=== PATIENT | female | born 1960 ===

== ENCOUNTER 2017-01-24 09:07 | Day surgery (SDC) | payer OTHER ==
[2016-09-13 09:20] VITALS: BMI 27.3
[2017-01-24] MEDS ORDERED: Dextrose 5%/0.45% NS 500 ML IV ONE (10:40)
[2017-01-24 11:47] LABS: BASO % 0.7 % (0.0-2.0); EOS # 0.2 K/uL (0.0-0.7); EOS % 3.6 % (0.0-4.0); LYMPH # 2.1 K/uL (1.0-4.3); LYMPH % 42.4 % (20.0-40.0); MEAN CELL VOLUME 94.8 fL (81.0-99.0); MEAN CORPUSCULAR HEMOGLOBIN 30.8 pg (27.0-31.0); MEAN CORPUSCULAR HGB CONC 32.5 g/dL (33.0-37.0); MEAN PLATELET VOLUME 9.9 fL (7.2-11.7); MONO # 0.5 K/uL (0.0-0.8); MONO % 9.3 % (0.0-10.0); RED CELL DISTRIBUTION WIDTH 13.2 % (11.5-14.5)
[2017-01-24 11:50] LABS: CHLORIDE 101 mmol/L (98-107); POTASSIUM 3.6 mmol/L (3.6-5.2); SODIUM 140 mmol/L (132-148)
[2017-01-24 11:52] LABS: GFR AFRICAN-AMERICAN > 60
[2017-01-24 11:53] LABS: ALB/GLOB RATIO 1.3 (1.0-2.1); ALKALINE PHOSPHATASE 63 U/L (38-126); ALT/SGPT 31 U/L (9-52); AST/SGOT 35 U/L (14-36); BILIRUBIN,DIRECT 0.2 mg/dL (0.0-0.4); BILIRUBIN,TOTAL 0.2 mg/dL (0.2-1.3); BLOOD UREA NITROGEN 12 mg/dL (7-17); CALCIUM 8.5 mg/dl (8.6-10.4); CARBON DIOXIDE 29 mmol/L (22-30); GLUCOSE,RANDOM 58 mg/dL (65-105); TOTAL PROTEIN 6.5 g/dL (6.3-8.3)
[2017-01-24] MEDS ORDERED: Propofol 10 mg/ml Inj (20 ML) ONE ×2 (12:34→13:00)
[2017-01-24 13:27] VITALS: TEMP 97.5
[2017-01-24 14:04] VITALS: O2SAT 100
[2017-01-24 14:07] VITALS: BP 158/81; PULSE 60; RESP 12
[2017-01-26 18:20] LABS: ALT 20 U/L (6-29); BILIRUBIN, TOTAL 0.3 mg/dL (0.2-1.2); FIBROSIS STAGE F1-F2 (()); HAPTOGLOBIN 43 mg/dL (43-212); REFERENCE ID 1484443 (())
[2017-01-28 06:53] LABS: HEPATITIS C VIRAL RNA QUAL Detected (())
[2017-01-28 22:32] LABS: DACLATASVIR RESISTANCE NOT PREDICTED (()); ELBASVIR RESISTANCE NOT PREDICTED (()); HCV NS5A SUBTYPE 1a (()); LIPIDASVIR RESISTANCE NOT PREDICTED (()); OMBITASVIR RESISTANCE NOT PREDICTED (()); VELPATASVIR RESISTANCE NOT PREDICTED (())
== END 2017-01-24 13:57 | disposition home or self-care (01) ==
LOC: C.ENDO 09:07
PROVIDERS: ATTEND Internal Medicine Gastroenterology
DX: Z12.11 Encounter for screening for malignant neoplasm of colon (principal); K57.30 Diverticulosis of large intestine without perforation or abscess without bleeding; K64.8 Other hemorrhoids; B18.2 Chronic viral hepatitis C
CPT/HCPCS: 36415; 45378; 80048; 80076; 82948; 85025; 85610; 85730; 86664; 86665; 87517; 87521; 87902; J2704; J7042

== ENCOUNTER 2017-02-01 12:25 | Emergency (ER) | payer OTHER ==
[2017-02-01 12:25] VITALS: BMI 27.3
[2017-02-01 12:54] VITALS: BP 127/79; PULSE 82; RESP 18; TEMP 98.4; O2SAT 96
--- NOTE | 2017-02-01 13:30 | C.PDOC ---
Time Seen by Provider: 02/01/17 13:15 Chief Complaint (Nursing): Substance Abuse Past Medical History Vital Signs: Last Vital Signs Temp 98.4 F 02/01/17 12:51 Pulse 82 02/01/17 12:51 Resp 18 02/01/17 12:51 BP 127/79 02/01/17 12:51 Pulse Ox 96 02/01/17 12:51 - Medical History PMH: Anxiety, Arthritis, Asthma, Back Problems (herniated discs), Bipolar Disorder, Colonic Polyps (2014), Depression, Diabetes (type 2), HTN, Pulmonary Embolism, Seizures (LAST SEIZURE 1 1/2 MONTHS AGO) Denies: Fractures, Chronic Kidney Disease Surgical History: Cholecystectomy, Endoscopy (2014) Family History: States: Unknown Family Hx - Social History Hx Tobacco Use: No Hx Alcohol Use: Yes Hx Substance Use: No (COCAINE 25 YEARS AGO; ALCOHOL; OPIODS) - Immunization History Hx Tetanus Toxoid Vaccination: No Hx Influenza Vaccination: No Hx Pneumococcal Vaccination: No ED Course And Treatment O2 Sat by Pulse Oximetry: 96
--- NOTE | 2017-02-01 13:31 | C.PDOC ---
History Of Present Illness 56 y/o female presents to the ED requesting alcohol detox. Pt was sent by PMD. Pt has no physical complaints at this time. Time Seen by Provider: 02/01/17 13:15 Chief Complaint (Nursing): Substance Abuse History Per: Patient History/Exam Limitations: no limitations Suicide/Self Injury Attempted (Context): None Modifying Factor(s): Alcohol Severity: Mild Involuntary Hold By: None Recent travel outside of the [place]: No Past Medical History Reviewed: Historical Data, Nursing Documentation, Vital Signs Vital Signs: Last Vital Signs Temp 98.4 F 02/01/17 12:51 Pulse 82 02/01/17 12:51 Resp 18 02/01/17 12:51 BP 127/79 02/01/17 12:51 Pulse Ox 96 02/01/17 13:32 - Medical History PMH: Anxiety, Arthritis, Asthma, Back Problems (herniated discs), Bipolar Disorder, Colonic Polyps (2014), Depression, Diabetes (type 2), HTN, Pulmonary Embolism, Seizures (LAST SEIZURE 1 1/2 MONTHS AGO) Surgical History: Cholecystectomy, Endoscopy (2014) Family History: States: Unknown Family Hx - Social History Hx Tobacco Use: No Hx Alcohol Use: Yes Hx Substance Use: No (COCAINE 25 YEARS AGO; ALCOHOL; OPIODS) - Immunization History Hx Tetanus Toxoid Vaccination: No Hx Influenza Vaccination: No Hx Pneumococcal Vaccination: No Review Of Systems Except As Marked, All Systems Reviewed And Found Negative. Constitutional: Negative for: Fever Cardiovascular: Negative for: Chest Pain Respiratory: Negative for: Shortness of Breath Gastrointestinal: Negative for: Vomiting Neurological: Negative for: Headache Physical Exam - Physical Exam Appears: Non-toxic, No Acute Distress Skin: Warm, Dry, No Rash Head: Atraumatic, Normacephalic Neck: Normal ROM Chest: Symmetrical Cardiovascular: Rhythm Regular, No Murmur Respiratory: Normal Breath Sounds, No Rales, No Rhonchi, No Wheezing Gastrointestinal/Abdominal: Soft, No Tenderness Extremity: Bilateral: Atraumatic Neurological/Psych: Oriented x3, Normal Speech ED Course And Treatment O2 Sat by Pulse Oximetry: 96 (on room air) Pulse Ox Interpretation: Normal Progress Note: CRISIS evaluated patient. No beds available at this time, instructed to call tomorrow. Pt resting compfortably, no acute distress. Reassessment Condition: Unchanged Disposition - Disposition Referrals: Alcoholics Anonymous [Outside] [facility] [Outside] [facility] [Outside] Disposition: HOME/ ROUTINE Disposition Time: 13:00 Condition: STABLE Additional Instructions: Follow up with outpatient services Instructions: Abuse of Alcohol (ED), Alcohol Use Disorder (ED) - Clinical Impression Clinical Impression: Alcohol abuse - PA / COMPUTATIONAL SCIENTIST / Resident Statement MD/DO has reviewed & agrees with the documentation as recorded. - Scribe Statement The provider has reviewed the documentation as recorded by the Scribrachel Welch All medical record entries made by the Reneibrachel were at my direction and personally dictated by me. I have reviewed the chart and agree that the record accurately reflects my personal performance of the history, physical exam, medical decision making, and the department course for this patient. I have also personally directed, reviewed, and agree with the discharge instructions and disposition.
== END 2017-02-01 13:47 | disposition home or self-care (01) ==
LOC: C.ER 12:25
DX: F10.10 Alcohol abuse, uncomplicated (principal); Y90.9 Presence of alcohol in blood, level not specified

== ENCOUNTER 2017-02-03 10:41 | Inpatient (IN) | payer MEDICAID, OTHER ==
[2017-02-03 10:41] VITALS: BMI 27.3
[2017-02-03 11:23] LABS: BASO # 0.1 K/uL (0.0-0.2); BASO % 1.3 % (0.0-2.0); EOS # 0.2 K/uL (0.0-0.7); HEMATOCRIT 32.8 % (34.0-47.0); LYMPH # 1.8 K/uL (1.0-4.3); LYMPH % 36.4 % (20.0-40.0); MEAN CELL VOLUME 94.1 fL (81.0-99.0); MEAN CORPUSCULAR HEMOGLOBIN 31.1 pg (27.0-31.0); MEAN PLATELET VOLUME 9.8 fL (7.2-11.7); MONO # 0.6 K/uL (0.0-0.8); MONO % 11.4 % (0.0-10.0); NRBC % 0.1 % (0.0-2.0); RED CELL DISTRIBUTION WIDTH 13.2 % (11.5-14.5); WHITE BLOOD COUNT 4.9 K/uL (4.8-10.8)
[2017-02-03 11:31] LABS: CHLORIDE 102 mmol/L (98-107); POTASSIUM 4.8 mmol/L (3.6-5.2); SODIUM 138 mmol/L (132-148)
[2017-02-03 11:33] LABS: ALB/GLOB RATIO 1.2 (1.0-2.1); ALKALINE PHOSPHATASE 106 U/L (38-126); AST/SGOT 48 U/L (14-36); BILIRUBIN,TOTAL 0.1 mg/dL (0.2-1.3); BLOOD UREA NITROGEN 31 mg/dL (7-17); CARBON DIOXIDE 24 mmol/L (22-30); GFR AFRICAN-AMERICAN > 60; TOTAL PROTEIN 7.1 g/dL (6.3-8.3)
[2017-02-03 11:34] LABS: ALCOHOL SERUM < 10 mg/dl (0-10); ALT/SGPT 53 U/L (9-52); CALCIUM 8.6 mg/dl (8.6-10.4); GLUCOSE,RANDOM 217 mg/dL (65-105)
[2017-02-03 11:45] LABS: RBC URINE 1 /hpf (0-3); URINE BACTERIA MANY (<OCC); URINE BILIRUBIN NEGATIVE (NEGATIVE); URINE BLOOD NEGATIVE (NEGATIVE); URINE COLOR Amber (YELLOW); URINE GLUCOSE (UA) NORMAL (Normal); URINE HYALINE CAST 0-2 /lpf (0-2); URINE KETONE TRACE mg/dL (NEGATIVE); URINE LEUKOCYTE ESTERASE NEG Leu/uL (Negative); URINE PROTEIN 1+ mg/dL (NEGATIVE); URINE UROBILINOGEN NORMAL mg/dL (0.2-1.0); WBC URINE 1 /hpf (0-5)
--- NOTE | 2017-02-03 12:01 | C.PDOC ---
History Of Present Illness 56 yr old female presents to the ER for alcohol detox. Patient is a pre- screened. Patient reports last drink was last night around 10pm. Patient reports history of auditory hallucinations and depression. Patient denies suicidal ideation, homicidal ideation, fever, chills, chest pain, SOB, nausea, vomiting, abdominal pain, diarrhea, weakness or numbness. Time Seen by Provider: 02/03/17 10:55 Chief Complaint (Nursing): Substance Abuse History Per: Patient History/Exam Limitations: no limitations Onset/Duration Of Symptoms: Persistent Modifying Factor(s): Alcohol Past Medical History Reviewed: Historical Data, Nursing Documentation, Vital Signs Vital Signs: Last Vital Signs Temp 97.4 F L 02/03/17 10:44 Pulse 71 02/03/17 10:44 Resp 18 02/03/17 10:44 BP 158/79 H 02/03/17 10:44 Pulse Ox 100 02/03/17 12:02 - Medical History PMH: Anxiety, Arthritis, Asthma, Back Problems (herniated discs), Bipolar Disorder, Colonic Polyps (2014), Depression, Diabetes (type 2), HTN, Pulmonary Embolism, Seizures Surgical History: Cholecystectomy, Endoscopy (2014) Family History: States: No Known Family Hx - Social History Hx Tobacco Use: No Hx Alcohol Use: Yes Hx Substance Use: No (COCAINE 25 YEARS AGO; ALCOHOL; OPIODS) - Immunization History Hx Tetanus Toxoid Vaccination: No Hx Influenza Vaccination: No Hx Pneumococcal Vaccination: No Review Of Systems Except As Marked, All Systems Reviewed And Found Negative. Constitutional: Negative for: Fever, Chills Cardiovascular: Negative for: Chest Pain Respiratory: Negative for: Shortness of Breath Gastrointestinal: Negative for: Nausea, Vomiting, Abdominal Pain, Diarrhea Neurological: Negative for: Weakness, Numbness Psych: Negative for: Suicidal ideation Physical Exam - Physical Exam Appears: Well, Non-toxic, No Acute Distress Skin: Warm, Dry, No Rash Head: Atraumatic, Normacephalic Eye(s): bilateral: Normal Inspection, PERRL, EOMI Oral Mucosa: Moist Throat: Normal, No Erythema, No Exudate, No Drooling Chest: Symmetrical, No Tenderness Cardiovascular: Rhythm Regular, No Murmur Respiratory: Normal Breath Sounds, No Rales, No Rhonchi, No Wheezing Gastrointestinal/Abdominal: Normal Exam, Soft, No Tenderness, No Guarding, No Rebound Back: Normal Inspection Extremity: Normal ROM, No Swelling Neurological/Psych: Oriented x3, Normal Speech ED Course And Treatment - Laboratory Results Result Diagrams: 02/03/17 11:19 02/03/17 11:19 Interpretation Of Abnormal: Patient noted to have UTI, given macrobid. Glucose is 217. O2 Sat by Pulse Oximetry: 100 Medical Decision Making Medical Decision Making: PLAN: * Alcohol Serum * Drug Screen * CBC * Urinalysis * Crisis evaluation * Naprosyn for chronic leg pain Labs reviewed. patient noted to have a UTI, given macrobid PO. Glucose is 217, patient has a h/o DM. Otherwise patient is medically cleared for crisis evaluation. As per Julianne vegetable worker, patient will need inpatient detox for alcohol dependence. Patient agrees with current plan of care. Disposition - Disposition Disposition: HOSPITALIZED Disposition Time: 13:02 Condition: STABLE - Clinical Impression Clinical Impression: Alcohol abuse, UTI (urinary tract infection) - PA / CYBERATHLETE / Resident Statement MD/DO has reviewed & agrees with the documentation as recorded. - Scribe Statement The provider has reviewed the documentation as recorded by the Scribe Celine Donnelly All medical record entries made by the Nerissa were at my direction and personally dictated by me. I have reviewed the chart and agree that the record accurately reflects my personal performance of the history, physical exam, medical decision making, and the department course for this patient. I have also personally directed, reviewed, and agree with the discharge instructions and disposition.
[2017-02-03] MEDS ORDERED: Naproxen 550 mg Tab PO ONE ×2 (12:30→12:33)
[2017-02-03] MEDS: (Novolog) Insulin Aspart, Recombinant 100 u/ml 10 ml vial SC SCH ×2 (16:50→21:20)
[2017-02-03] MEDS: Phenytoin 100 mg/4 ml Oral Susp UD PO SCH (17:40)
[2017-02-03] MEDS: Divalproex 500 mg ER Tab PO SCH (17:40)
--- NOTE | 2017-02-04 00:02 | PCM.PSYCH ---
Initial Psychiatric Evaluation - Initial Psychiatric Evaluation Type of Admission: Voluntary Legal Status: Capacity Chief Complaint (in patient's own words): "I need help, please" History of Present Illness and Precipitating Events: The patient is seen, chart reviewed and case discussed. This is a 56-year-old female, , has 3 children, on disability living with parents. The patient is here for alcohol detox, which she somewhat minimizes and states she is drinks sometimes but "I go to the deep end." It was reported that she drinks more than that. She denies drug use though. She had been to detox and rehabilitation before. She also reports psychiatric symptoms, she hears voices which are scary to her and sometimes given commands. However, she denies getting suicide or homicide commands and currently she doesn't feel suicidal. She had been suicidal in the past and attempted a few times. She was hospitalized at [facility] but currently she states she feels better, except for the voices. She agreed to switch her medication from Zyprexa to Abilify, which is also needed because she has diabetes. The patient sees Dr. Kessler or Dr. Solomon but does not go to therapy or a program. She agreed to switch as well. Past psych history: As above. Diagnosed with bipolar disorder, but she does not report any clear-cut manic symptoms or episodes. She does have recurrence major depression, and perhaps schizoaffective disorder. Family psych history: Alcoholism Medical history: Diabetes, hypertension, seizure disorder. Last seizure was months ago. Current Medications: Active Medications Generic Name Dose Route Start Last Admin Trade Name Freq PRN Reason Stop Dose Admin Aripiprazole 5 mg 02/04/17 18:00 Abilify PO QPM PINA Chlordiazepoxide 25 mg 02/03/17 13:32 02/03/17 16:02 Librium PO 25 mg Q4H PRN Administration Alcohol Withdrawal Chlordiazepoxide 25 mg 02/03/17 18:00 02/03/17 23:36 Librium PO 02/07/17 17:59 Not Given Q6 PINA Taper Clonidine HCl 0.1 mg 02/03/17 13:32 02/03/17 17:40 Catapres PO 0.1 mg Q4H PRN Administration Symptoms of alcohol withdrawl Divalproex Sodium 500 mg 02/03/17 16:00 02/03/17 17:40 Depakote Er PO 500 mg DAILY PINA Administration Folic Acid 1 mg 02/04/17 10:00 Folic Acid PO DAILY PINA Hydroxyzine HCl 25 mg 02/03/17 13:33 02/03/17 16:02 Atarax PO 25 mg Q4H PRN Administration Anxiety Ibuprofen 600 mg 02/03/17 13:33 02/03/17 16:02 Motrin Tab PO 600 mg Q6H PRN Administration Pain, moderate (4-7) Insulin Aspart 0 unit 02/03/17 16:30 02/03/17 21:20 Novolog SC 3 unit ACHS PINA Administration Protocol Lidocaine 1 ea 02/04/17 10:00 Lidoderm TD DAILY [facility] Lisinopril 40 mg 02/04/17 10:00 Zestril PO DAILY [facility] Multivitamins 1 tab 02/04/17 10:00 Hexavitamin PO DAILY [facility] Nitrofurantoin Macrocrystals 100 mg 02/03/17 22:00 02/03/17 21:17 Macrobid PO 100 mg Q12 PINA Administration Phenytoin 100 mg 02/03/17 18:00 02/03/17 17:40 Dilantin PO 100 mg TID [facility] Administration Thiamine HCl 100 mg 02/04/17 10:00 Vitamin B1 Tab PO DAILY [facility] Trazodone HCl 50 mg 02/03/17 13:32 Desyrel PO HS PRN Insomnia Past Psychiatric History - Past Psychiatric History Previous Treatment History: Inpatient Pertinent Medical Hx (Current Medical&Sleep Prob, Allergies): Allergies Allergy/AdvReac Type Severity Reaction Status Date / Time HOT SAUCE Allergy RASH Uncoded 02/03/17 10:46 Gabapentin [Neurontin] 300 mg PO TID 01/20/15 Lidocaine 5% [Lidoderm] 1 appl TOP DAILY 09/13/16 Phenytoin, Extended [Dilantin] 100 mg PO TID 09/13/16 RX: Famotidine 20 mg PO HS 09/13/16 Benztropine [Benztropine Mesylate] 2 mg PO DAILY 01/24/17 Bisacodyl [Ducolax] 5 mg PO DAILY 01/24/17 Calcium Carbonate/Vitamin D3 [Oysco 500 + D 500 mg-200 Iu] 1 tab PO DAILY Cholecalciferol (Vitamin D3) [Vitamin D3] 1,000 unit PO DAILY 01/24/17 Insulin Aspart [Novolog FLEXPEN] 100 units SC HS PRN 01/24/17 Multivitamin [Daily Tracey] 1 tab PO DAILY 01/24/17 RX: Divalproex Sodium 250 mg PO DAILY 01/24/17 RX: Divalproex Sodium [Divalproex Sodium ER] 250 mg PO DAILY 01/24/17 RX: Folic Acid 1 mg PO DAILY 01/24/17 RX: Lisinopril [Zestril] 40 mg DAILY 01/24/17 OLANZapine [Zyprexa Zydis] 10 mg PO DAILY 02/03/17 Review of Systems - Neurological Neurological: UNREMARKABLE - Psychiatric Psychiatric: Abnormal Sleep Pattern, Anhedonia, Anxiety, Auditory Hallucinations , Difficulty Concentrating, Hallucinations, Mood Swings, Panic Attacks. absent : Homicidal Ideation, Paranoia, Suicidal Ideation Mental Status Examination - Personal Presentation Personal Presentation: Looks stated age - Affect Affect: Constricted - Motor Activity Motor Activity: Calm - Reliability in Providing Information Reliability in Providing Information: Good - Speech Speech: Organized - Mood Mood: Depressed, Anxious - Formal Thought Process Formal Thought Process: No Impairment - Cognitive Functions Orientation: Person, Place, Situation, Time Sensorium: Alert Attention/Concentration: Attentive Estimate of Intelligence: Average Judgement: Intact, as evidence by: Insight regarding need for hospitalization Memory: Recent intact, as evidence by: Ability to recall events of the day, Remote intact, as evidenced by: Abilit to recall sig. life events - Risk Risk: Seizure, Withdrawal, Diminished functioning - Strength & Assets Inventory Strength & Assets Inventory: Family support, Cooperative - Limitations Limitations: Other DSM 5 DX - DSM 5 DSM 5 Diagnosis: Alcohol withdrawal Alcohol use d/o - severe Major depression - recurrent, severe, with psychotic feat. DM HTN Seizure d/o - Recommended/Plan of Treatment Treatment Recommendations and Plan of Treatment: Alcohol: -Librium detox -As needed medications -Support and psychoeducation -Attend groups and activities -[place] and CBT for abstinence and relapse prevention Depression/psychotic symptoms: -Prozac started -Abilify started -Discontinue Zyprexa -Support and psychoeducation -CBT Seizure disorder: -Continue Dilantin -Dilantin level in a.m. -Depakote is increased from 500-1000 ER -Depakote level in 3 days -Monitor symptoms UTI: -Macrobid DM, HTN: -Med consult -FS coverage for now 33 min Projected ELOS: 4 days Prognosis: good with tx Discharge Plan and Discharge Criteria: No wdw sxs Refer to IOP and start MAT - Smoking Cessation Smoking Cessation Initiated: Yes
[2017-02-04] MEDS: (Novolog) Insulin Aspart, Recombinant 100 u/ml 10 ml vial SC SCH ×4 (07:39→21:55)
[2017-02-04 08:39] LABS: MAGNESIUM 2.3 mg/dL (1.6-2.3)
[2017-02-04 09:47] LABS: THYROID STIMULATING HORMONE 1.08 mIU/L (0.46-4.68)
[2017-02-04] MEDS: Divalproex 500 mg ER Tab PO SCH ×2 (09:55→18:16)
[2017-02-04] MEDS: Phenytoin 100 mg/4 ml Oral Susp UD PO SCH ×3 (09:56→18:17)
[2017-02-04] MEDS: Lidocaine 5% Patch TD SCH (09:56)
[2017-02-04] MEDS: Multiple Vitamins Tab PO SCH (09:56)
[2017-02-04] MEDS ORDERED: Divalproex 500 mg ER Tab PO SCH (10:26)
--- NOTE | 2017-02-04 15:03 | CP.PCM.CON ---
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 Medicine team was consulted for diabetes management as patient has POC > 400 this AM. Patient admits she is compliant with medications. [facility] in [place] is where she filled her medications last. Patient reports she is sleepy and hearing things. Admits to exessive thirst and urinary frequency. She is not sure if she's having dysuria, but admits her habit of douching might be related to her discomfort. Admits to numbness and tingling of bilateral LE. Admit to complaince at home with medications. Denies chest pain, abdominal pain, nausea, vomiting, fevers, chills , headache. 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 Surgeries: None Medications: Olanzapine HS, Benztropine 1 mg daily, Phenytoin, Famotadine, Gabapentin 300 mg TID, Glargine 40 units SC daily, Lisinopril 40 mg PO daily, Folic acid, Vit D 1000 daily, Anusol 500 mg BID, Linzess 290 mg PO daily, Lidocaine patch, ASA 81 mg PO daily (confirmed with patient's pharmacy). Family Hx: mother and father with DM. Allergies: hot sauce PMD: Dr. Orourke Review of Systems - Constitutional Constitutional: absent: Chills, Fever - EENT Eyes: absent: Blurred Vision Ears: absent: Dizziness - Cardiovascular Cardiovascular: absent: Chest Pain, Dyspnea - Respiratory Respiratory: absent: Cough, Dyspnea - Gastrointestinal Gastrointestinal: absent: Abdominal Pain, Constipation, Diarrhea, Nausea, Vomiting - Genitourinary Genitourinary: Dysuria, Urinary Frequency. absent: Change in Urinary Stream, Difficulty Urinating - Musculoskeletal Musculoskeletal: Back Pain. absent: Numbness, Tingling - Integumentary Integumentary: absent: Rash, Swelling - Neurological Neurological: Numbness, Tingling. absent: Dizziness, Tremor, Weakness - Psychiatric Psychiatric: Hallucinations, Paranoia - Endocrine Endocrine: absent: Fatigue, Palpitations Past Patient History - Past Medical History & Family History Past Medical History?: Yes - Past Social History Smoking Status: Light Smoker < 10 Cigarettes Daily - CARDIAC Hx Hypertension: Yes - PULMONARY Hx Asthma: Yes Hx Pulmonary Embolism: Yes - NEUROLOGICAL Hx Seizures: Yes - HEENT Hx HEENT Problems: No - RENAL Hx Chronic Kidney Disease: No - ENDOCRINE/METABOLIC Hx Endocrine Disorders: Yes Hx Diabetes Mellitus Type 2: Yes - HEMATOLOGICAL/ONCOLOGICAL Hx Cancer: No Hx Human Immunodeficiency Virus (HIV): No - INTEGUMENTARY Hx Dermatological Problems: No - MUSCULOSKELETAL/RHEUMATOLOGICAL Hx Arthritis: Yes Hx Falls: No (hx seizure) - GASTROINTESTINAL Hx Gastrointestinal Disorders: Yes Hx Gastroesophageal Reflux: Yes Other/Comment: GASTRIC BYPASS, PEPTIC ULCER DISEASE - GENITOURINARY/GYNECOLOGICAL Hx Sexually Transmitted Disorders: No - PSYCHIATRIC Hx Anxiety: Yes Hx Bipolar Disorder: Yes Hx Depression: Yes Hx Substance Use: Yes (use cocaine before) - SURGICAL HISTORY Hx Cholecystectomy: Yes - ANESTHESIA Hx Anesthesia: Yes Hx Anesthesia Reactions: No Hx Malignant Hyperthermia: No Meds Allergies/Adverse Reactions: Allergies Allergy/AdvReac Type Severity Reaction Status Date / Time HOT SAUCE Allergy RASH Uncoded 02/03/17 10:46 - Medications Medications: Current Medications Aripiprazole (Abilify) 5 mg PO QPM [facility] Chlordiazepoxide (Librium) 25 mg PO Q4H PRN PRN Reason: Alcohol Withdrawal Last Admin: 02/03/17 16:02 Dose: 25 mg Chlordiazepoxide (Librium) 25 mg PO Q6 [facility] PRN Reason: Taper Stop: 02/07/17 17:59 Last Admin: 02/04/17 11:51 Dose: 25 mg Clonidine HCl (Catapres) 0.1 mg PO Q4H PRN PRN Reason: Symptoms of alcohol withdrawl Last Admin: 02/03/17 17:40 Dose: 0.1 mg Divalproex Sodium (Depakote Er) 1,000 mg PO QPM [facility] Fluoxetine HCl (Prozac) 10 mg PO DAILY [facility] Last Admin: 02/04/17 13:00 Dose: 10 mg Folic Acid (Folic Acid) 1 mg PO DAILY [facility] Last Admin: 02/04/17 09:56 Dose: 1 mg Haloperidol (Haldol) 5 mg PO Q4H PRN PRN Reason: Hallucinations, agitation Hydroxyzine HCl (Atarax) 25 mg PO Q4H PRN PRN Reason: Anxiety Last Admin: 02/03/17 16:02 Dose: 25 mg Ibuprofen (Motrin Tab) 600 mg PO Q6H PRN PRN Reason: Pain, moderate (4-7) Last Admin: 02/03/17 16:02 Dose: 600 mg Insulin Aspart (Novolog) 0 unit SC ACHS [facility] PRN Reason: Protocol Last Admin: 02/04/17 11:51 Dose: 10 unit Lidocaine (Lidoderm) 1 ea TD DAILY [facility] Last Admin: 02/04/17 09:56 Dose: 1 ea Lisinopril (Zestril) 40 mg PO DAILY [facility] Last Admin: 02/04/17 09:56 Dose: 40 mg Multivitamins (Hexavitamin) 1 tab PO DAILY [facility] Last Admin: 02/04/17 09:56 Dose: 1 tab Nitrofurantoin Macrocrystals (Macrobid) 100 mg PO Q12 [facility] Last Admin: 02/04/17 09:55 Dose: 100 mg Phenytoin (Dilantin) 100 mg PO TID [facility] Last Admin: 02/04/17 13:00 Dose: 100 mg Thiamine HCl (Vitamin B1 Tab) 100 mg PO DAILY [facility] Last Admin: 02/04/17 09:56 Dose: 100 mg Trazodone HCl (Desyrel) 50 mg PO HS PRN PRN Reason: Insomnia Physical Exam - Constitutional Appears: No Acute Distress - Head Exam Head Exam: NORMAL INSPECTION, NORMOCEPHALIC - Eye Exam Eye Exam: EOMI, Normal appearance - ENT Exam ENT Exam: Mucous Membranes Moist - Neck Exam Neck exam: Positive for: Full Rom, Normal Inspection - Respiratory Exam Respiratory Exam: Clear to Auscultation Bilateral, NORMAL BREATHING PATTERN - Cardiovascular Exam Cardiovascular Exam: REGULAR RHYTHM, +S1, +S2 - GI/Abdominal Exam GI & Abdominal Exam: Normal Bowel Sounds, Soft. absent: Distended, Tenderness - Extremities Exam Extremities exam: Positive for: full ROM, normal inspection - Back Exam Back exam: NORMAL INSPECTION - Neurological Exam Neurological exam: Alert, Oriented x3 - Psychiatric Exam Psychiatric exam: Normal Affect, Normal Mood - Skin Skin Exam: Dry, Normal Color Results - Vital Signs Recent Vital Signs: Last Vital Signs Temp 97.4 F L 02/04/17 13:04 Pulse 74 02/04/17 13:04 Resp 18 02/04/17 13:04 BP 122/76 02/04/17 13:04 Pulse Ox 99 02/04/17 13:04 - Labs Result Diagrams: 02/03/17 11:19 02/03/17 11:19 Labs: Laboratory Results - last 24 hr 02/03/17 02/04/17 02/04/17 21:12 07:31 08:01 POC Glucose (mg/dL) 383 H 290 H Hemoglobin A1c 9.1 H Magnesium 2.3 Triglycerides 51 Cholesterol 164 LDL Cholesterol Direct 45 HDL Cholesterol 102 H TSH 3rd Generation 1.08 02/04/17 11:38 POC Glucose (mg/dL) 443 H* Hemoglobin A1c Magnesium Triglycerides Cholesterol LDL Cholesterol Direct HDL Cholesterol TSH 3rd Generation Assessment & Plan (1) Diabetes mellitus Assessment and Plan: ACCUCHECKS ACHS f/u Hgb A1C Restart home medication Lantus 40 mg HS Regular ISS Gabapentin 300 mg po TID for neuropathy Status: Acute (2) Dysuria Assessment and Plan: f/u UA f/u C&S Status: Acute (3) Alcohol abuse Assessment and Plan: Detox as per Detox team. Patient on Ativan taper. MV PO daily Thiamine 100 mg PO daily Status: Acute (4) HTN (hypertension) Assessment and Plan: Restart home medication Lisinopril 40 mg PO daily Status: Acute (5) Prophylactic measure Assessment and Plan: Pepcid 20 mg PO BID Ambulation Status: Acute <Juan Carlos Miranda - Last Filed: 02/05/17 14:26> Meds - Medications Medications: Current Medications Aripiprazole (Abilify) 5 mg PO QPM [facility] Last Admin: 02/04/17 18:15 Dose: 5 mg Chlordiazepoxide (Librium) 25 mg PO Q4H PRN PRN Reason: Alcohol Withdrawal Last Admin: 02/03/17 16:02 Dose: 25 mg Chlordiazepoxide (Librium) 25 mg PO TID [facility] PRN Reason: Taper Stop: 02/07/17 17:59 Last Admin: 02/05/17 13:31 Dose: 25 mg Clonidine HCl (Catapres) 0.1 mg PO Q4H PRN PRN Reason: Symptoms of alcohol withdrawl Last Admin: 02/03/17 17:40 Dose: 0.1 mg Divalproex Sodium (Depakote Er) 1,000 mg PO QPM [facility] Last Admin: 02/04/17 18:16 Dose: 1,000 mg Famotidine (Pepcid) 20 mg PO BID [facility] Last Admin: 02/05/17 09:41 Dose: 20 mg Fluoxetine HCl (Prozac) 10 mg PO DAILY [facility] Last Admin: 02/05/17 09:41 Dose: 10 mg Folic Acid (Folic Acid) 1 mg PO DAILY [facility] Last Admin: 02/05/17 09:41 Dose: 1 mg Gabapentin (Neurontin) 300 mg PO TID [facility] Last Admin: 02/05/17 13:31 Dose: 300 mg Haloperidol (Haldol) 5 mg PO Q4H PRN PRN Reason: Hallucinations, agitation Hydroxyzine HCl (Atarax) 25 mg PO Q4H PRN PRN Reason: Anxiety Last Admin: 02/03/17 16:02 Dose: 25 mg Ibuprofen (Motrin Tab) 600 mg PO Q6H PRN PRN Reason: Pain, moderate (4-7) Last Admin: 02/03/17 16:02 Dose: 600 mg Insulin Aspart (Novolog) 0 unit SC ACHS [facility] PRN Reason: Protocol Last Admin: 02/05/17 12:48 Dose: 8 unit Insulin Glargine (Lantus) 40 unit SC HS [facility] Last Admin: 02/04/17 21:50 Dose: 40 u Lidocaine (Lidoderm) 1 ea TD DAILY [facility] Last Admin: 02/05/17 09:40 Dose: 1 ea Lisinopril (Zestril) 40 mg PO DAILY [facility] Last Admin: 02/05/17 09:41 Dose: 40 mg Multivitamins (Hexavitamin) 1 tab PO DAILY [facility] Last Admin: 02/05/17 09:41 Dose: 1 tab Nitrofurantoin Macrocrystals (Macrobid) 100 mg PO Q12 [facility] Last Admin: 02/05/17 09:41 Dose: 100 mg Phenytoin (Dilantin) 100 mg PO TID [facility] Last Admin: 02/05/17 13:31 Dose: 100 mg Thiamine HCl (Vitamin B1 Tab) 100 mg PO DAILY [facility] Last Admin: 02/05/17 09:41 Dose: 100 mg Trazodone HCl (Desyrel) 50 mg PO HS PRN PRN Reason: Insomnia Last Admin: 02/04/17 21:59 Dose: 50 mg Results - Vital Signs Recent Vital Signs: Last Vital Signs Temp 98.7 F 02/05/17 13:46 Pulse 75 02/05/17 13:46 Resp 16 02/05/17 13:46 BP 114/75 02/05/17 13:46 Pulse Ox 99 02/05/17 13:46 - Labs Result Diagrams: 02/05/17 08:58 02/05/17 08:58 Labs: Laboratory Results - last 24 hr 02/04/17 02/04/17 02/05/17 17:28 21:21 05:56 WBC RBC Hgb Hct MCV MCH MCHC RDW Plt Count MPV Neut % (Auto) Lymph % (Auto) Kem[place] % (Auto) Eos % (Auto) Baso % (Auto) Neut # Lymph # Kemper # Eos # Baso # Sodium Potassium Chloride Carbon Dioxide Anion Gap BUN Creatinine Est GFR ( Amer) Est GFR (Non-Af Amer) POC Glucose (mg/dL) 336 H 394 H 189 H Random Glucose Calcium Magnesium Total Bilirubin AST ALT Alkaline Phosphatase Total Protein Albumin Globulin Albumin/Globulin Ratio Urine Color Urine Clarity Urine pH Ur Specific [place] Urine Protein Urine Glucose (UA) Urine Ketones Urine Blood Urine Nitrate Urine Bilirubin Urine Urobilinogen Ur Leukocyte Esterase Urine WBC (Auto) Ur Squamous Epith Cells Urine Bacteria Phenytoin 02/05/17 02/05/17 02/05/17 08:12 08:58 10:28 WBC 4.5 L RBC 3.65 L Hgb 11.3 Hct 34.7 MCV 95.1 MCH 31.0 MCHC 32.6 L RDW 13.4 Plt Count 211 MPV 10.3 Neut % (Auto) 35.2 L Lymph % (Auto) 49.1 H Kemper % (Auto) 8.6 Eos % (Auto) 6.0 H Baso % (Auto) 1.1 Neut # 1.6 L Lymph # 2.2 Kemper # 0.4 Eos # 0.3 Baso # 0.0 Sodium 140 Potassium 4.2 Chloride 106 Carbon Dioxide 26 Anion Gap 13 BUN 27 H Creatinine 0.6 L Est GFR ( Amer) > 60 Est GFR (Non-Af Amer) > 60 POC Glucose (mg/dL) 110 Random Glucose 103 Calcium 8.3 L Magnesium 2.4 H Total Bilirubin 0.2 AST 29 ALT 35 Alkaline Phosphatase 82 Total Protein 6.4 Albumin 3.4 L Globulin 3.0 Albumin/Globulin Ratio 1.1 Urine Color Yellow Urine Clarity Hazy Urine pH 5.0 Ur Specific [place] 1.016 Urine Protein Negative Urine Glucose (UA) 3+ H Urine Ketones Trace Urine Blood Negative Urine Nitrate Positive H Urine Bilirubin Negative Urine Urobilinogen Normal Ur Leukocyte Esterase Neg Urine WBC (Auto) 5 Ur Squamous Epith Cells 4 Urine Bacteria Many H Phenytoin < 3.0 L Attending/Attestation - Attestation I have personally seen and examined this patient.: Yes I have fully participated in the care of the patient.: Yes I have reviewed all pertinent clinical information: Yes Notes (Text): 02/05/17 14:25 Patient was seen and examined at bedside with the resident She will be started on Lantus and insulin sliding scale We will monitor the Accu-Cheks closely and titrate the insulin for optimal control Urinalysis noted Patient is unremarkable Agree with the above consultation note with the resident with the necessary amendments.
--- NOTE | 2017-02-04 15:19 | PCM.PYCHPN ---
Psychiatric Progress Note - Psychiatric Progress Note Patient seen today, length of contact: 22 min Patient Chief Complaint: "I need med change" Problems Identified/Issues Discussed: The pt is seen, chart reviewed, case discussed with staff. She is seen with the team The pt is compliant with medications and reports no side-effects. Symptoms are improving but needs more time to stabilize. Still having anxiety and sometimes AH. Not manic, paranoid or suicidal/ homicidal. Support given, MS used. After care discussed, support and psychoeducation given. She wants to go to an [facility] Medication Change: Yes Medical Record Reviewed: Yes Mental Status Examination - Cognitive Function Orientation: Person, Place, Situation, Time Memory: Impaired Attention: Poor Concentration: Poor Association: WNL Fund of Knowledge: Poor - Mood Mood: Depressed, Anxious - Affect Affect: Constricted - Speech Speech: Slurred (due to stroke) - Formal Thought Process Formal Thought Process: No Impairment - Suicidal Ideation Suicidal Ideation: No - Homicidal Ideation Homicidal Ideation: No Goal/Treatment Plan - Goal/Treatment Plan Need for Continued Stay: Discharge may exacerbated symptoms, Severe functional impairment Progress Toward Problem(s) and Goals/Treatment Plan: Alcohol: -Librium detox -As needed medications -Support and psychoeducation -Attend groups and activities -MS and CBT for abstinence and relapse prevention Depression/psychotic symptoms: -Prozac started -Abilify started -Discontinue Zyprexa -Support and psychoeducation -CBT Seizure disorder: -Continue Dilantin -Dilantin level in a.m. -Depakote is increased from 500-1000 ER -Depakote level in 3 days -Monitor symptoms UTI: -Macrobid DM, HTN: -Med consult -FS coverage for now Estimated Date of D/C: 02/07/17 - Smoking Cessation Smoking Cessation Initiated: Yes
[2017-02-04] MEDS: (Lantus) Insulin Glargine, Recombinant SC SCH (21:50)
[2017-02-05] MEDS: (Novolog) Insulin Aspart, Recombinant 100 u/ml 10 ml vial SC SCH ×4 (08:14→21:31)
--- NOTE | 2017-02-05 08:19 | CP.PCM.PN ---
<Hemanth Bean - Last Filed: 02/05/17 08:29> Subjective - Date & Time of Evaluation Date of Evaluation: 02/05/17 Time of Evaluation: 08:30 - Subjective Subjective: Medicine Note- Hospitalist Service Patient was seen and examined at bedside. Patient reports no acute complaints at this time. She says she has a mild discomfort/burn around her vaginal area, but thinks it may be from douching too much. She also mentions some chronic back and leg pain attributed to arthritis. No events overnight, per nursing. Objective - Vital Signs/Intake and Output Vital Signs (last 24 hours): Temp Pulse Resp BP Pulse Ox 97.9 F 79 18 115/74 97 02/05/17 04:58 02/05/17 04:58 02/05/17 04:58 02/05/17 04:58 02/05/17 04:58 - Medications Medications: Current Medications Aripiprazole (Abilify) 5 mg PO QPM [facility] Last Admin: 02/04/17 18:15 Dose: 5 mg Chlordiazepoxide (Librium) 25 mg PO Q4H PRN PRN Reason: Alcohol Withdrawal Last Admin: 02/03/17 16:02 Dose: 25 mg Chlordiazepoxide (Librium) 25 mg PO TID [facility] PRN Reason: Taper Stop: 02/07/17 17:59 Last Admin: 02/04/17 18:15 Dose: 25 mg Clonidine HCl (Catapres) 0.1 mg PO Q4H PRN PRN Reason: Symptoms of alcohol withdrawl Last Admin: 02/03/17 17:40 Dose: 0.1 mg Divalproex Sodium (Depakote Er) 1,000 mg PO QPM [facility] Last Admin: 02/04/17 18:16 Dose: 1,000 mg Famotidine (Pepcid) 20 mg PO BID [facility] Last Admin: 02/04/17 18:15 Dose: 20 mg Fluoxetine HCl (Prozac) 10 mg PO DAILY [facility] Last Admin: 02/04/17 13:00 Dose: 10 mg Folic Acid (Folic Acid) 1 mg PO DAILY [facility] Last Admin: 02/04/17 09:56 Dose: 1 mg Gabapentin (Neurontin) 300 mg PO TID [facility] Last Admin: 02/04/17 18:15 Dose: 300 mg Haloperidol (Haldol) 5 mg PO Q4H PRN PRN Reason: Hallucinations, agitation Hydroxyzine HCl (Atarax) 25 mg PO Q4H PRN PRN Reason: Anxiety Last Admin: 02/03/17 16:02 Dose: 25 mg Ibuprofen (Motrin Tab) 600 mg PO Q6H PRN PRN Reason: Pain, moderate (4-7) Last Admin: 02/03/17 16:02 Dose: 600 mg Insulin Aspart (Novolog) 0 unit SC [facility] PRN Reason: Protocol Last Admin: 02/05/17 08:14 Dose: Not Given Insulin Glargine (Lantus) 40 unit SC HS [facility] Last Admin: 02/04/17 21:50 Dose: 40 u Lidocaine (Lidoderm) 1 ea TD DAILY [facility] Last Admin: 02/04/17 09:56 Dose: 1 ea Lisinopril (Zestril) 40 mg PO DAILY [facility] Last Admin: 02/04/17 09:56 Dose: 40 mg Multivitamins (Hexavitamin) 1 tab PO DAILY [facility] Last Admin: 02/04/17 09:56 Dose: 1 tab Nitrofurantoin Macrocrystals (Macrobid) 100 mg PO Q12 [facility] Last Admin: 02/04/17 21:48 Dose: 100 mg Phenytoin (Dilantin) 100 mg PO TID [facility] Last Admin: 02/04/17 18:17 Dose: 100 mg Thiamine HCl (Vitamin B1 Tab) 100 mg PO DAILY [facility] Last Admin: 02/04/17 09:56 Dose: 100 mg Trazodone HCl (Desyrel) 50 mg PO HS PRN PRN Reason: Insomnia Last Admin: 02/04/17 21:59 Dose: 50 mg Assessment and Plan - Assessment and Plan (Free Text) Assessment: (1) Diabetes mellitus Assessment and Plan: ACCUCHECKS [facility] HgbA1C- 9.1 Continue hhome medication Lantus 40 mg HS Regular ISS Gabapentin 300 mg po TID for neuropathy Status: Acute (2) Dysuria Assessment and Plan: UA- Nitrate positive UA- pending Urine C&S- pending Currently on Bactrim 100mg Q12h Status: Acute (3) Alcohol abuse Assessment and Plan: Detox as per Detox team. Patient on Ativan taper. MV PO daily Thiamine 100 mg PO daily Status: Acute (4) HTN (hypertension) Assessment and Plan: Continue home medication Lisinopril 40 mg PO daily Status: Acute (5) Prophylactic measure Assessment and Plan: Pepcid 20 mg PO BID Ambulation Status: Acute <Juan Carlos Miranda - Last Filed: 02/05/17 15:21> Objective - Vital Signs/Intake and Output Vital Signs (last 24 hours): Temp Pulse Resp BP Pulse Ox 98.7 F 75 16 114/75 99 02/05/17 13:46 02/05/17 13:46 02/05/17 13:46 02/05/17 13:46 02/05/17 13:46 - Medications Medications: Current Medications Aripiprazole (Abilify) 5 mg PO QPM [facility] Last Admin: 02/04/17 18:15 Dose: 5 mg Chlordiazepoxide (Librium) 25 mg PO Q4H PRN PRN Reason: Alcohol Withdrawal Last Admin: 02/03/17 16:02 Dose: 25 mg Chlordiazepoxide (Librium) 25 mg PO TID [facility] PRN Reason: Taper Stop: 02/07/17 17:59 Last Admin: 02/05/17 13:31 Dose: 25 mg Clonidine HCl (Catapres) 0.1 mg PO Q4H PRN PRN Reason: Symptoms of alcohol withdrawl Last Admin: 02/03/17 17:40 Dose: 0.1 mg Divalproex Sodium (Depakote Er) 1,000 mg PO QPM [facility] Last Admin: 02/04/17 18:16 Dose: 1,000 mg Famotidine (Pepcid) 20 mg PO BID [facility] Last Admin: 02/05/17 09:41 Dose: 20 mg Fluoxetine HCl (Prozac) 10 mg PO DAILY [facility] Last Admin: 02/05/17 09:41 Dose: 10 mg Folic Acid (Folic Acid) 1 mg PO DAILY [facility] Last Admin: 02/05/17 09:41 Dose: 1 mg Gabapentin (Neurontin) 300 mg PO TID [facility] Last Admin: 02/05/17 13:31 Dose: 300 mg Haloperidol (Haldol) 5 mg PO Q4H PRN PRN Reason: Hallucinations, agitation Hydroxyzine HCl (Atarax) 25 mg PO Q4H PRN PRN Reason: Anxiety Last Admin: 02/03/17 16:02 Dose: 25 mg Ibuprofen (Motrin Tab) 600 mg PO Q6H PRN PRN Reason: Pain, moderate (4-7) Last Admin: 02/03/17 16:02 Dose: 600 mg Insulin Aspart (Novolog) 0 unit SC ACHS [facility] PRN Reason: Protocol Last Admin: 02/05/17 12:48 Dose: 8 unit Insulin Glargine (Lantus) 40 unit SC HS [facility] Last Admin: 02/04/17 21:50 Dose: 40 u Lidocaine (Lidoderm) 1 ea TD DAILY [facility] Last Admin: 02/05/17 09:40 Dose: 1 ea Lisinopril (Zestril) 40 mg PO DAILY [facility] Last Admin: 02/05/17 09:41 Dose: 40 mg Multivitamins (Hexavitamin) 1 tab PO DAILY [facility] Last Admin: 02/05/17 09:41 Dose: 1 tab Nitrofurantoin Macrocrystals (Macrobid) 100 mg PO Q12 [facility] Last Admin: 02/05/17 09:41 Dose: 100 mg Phenytoin (Dilantin) 100 mg PO TID [facility] Last Admin: 02/05/17 13:31 Dose: 100 mg Thiamine HCl (Vitamin B1 Tab) 100 mg PO DAILY [facility] Last Admin: 02/05/17 09:41 Dose: 100 mg Trazodone HCl (Desyrel) 50 mg PO HS PRN PRN Reason: Insomnia Last Admin: 02/04/17 21:59 Dose: 50 mg - Labs Labs: 02/05/17 08:58 02/05/17 08:58 Attending/Attestation - Attestation I have personally seen and examined this patient.: Yes I have fully participated in the care of the patient.: Yes I have reviewed all pertinent clinical information, including history, physical exam and plan: Yes Notes (Text): 02/05/17 15:21 Patient seen and examined at bedside Blood sugar is better controlled now Continue current regimen of insulin We will titrate as needed for optimal control Patient is on Macrobid for UTI Discussed the plan of care with the resident and agree with the above history and physical and assessment/plan this mentioned above with the necessary amendments stated here.
[2017-02-05 09:07] LABS: BASO % 1.1 % (0.0-2.0); EOS # 0.3 K/uL (0.0-0.7); HEMATOCRIT 34.7 % (34.0-47.0); LYMPH # 2.2 K/uL (1.0-4.3); LYMPH % 49.1 % (20.0-40.0); MEAN CELL VOLUME 95.1 fL (81.0-99.0); MEAN CORPUSCULAR HGB CONC 32.6 g/dL (33.0-37.0); MEAN PLATELET VOLUME 10.3 fL (7.2-11.7); MONO # 0.4 K/uL (0.0-0.8); MONO % 8.6 % (0.0-10.0); NRBC % 0.1 % (0.0-2.0); RED CELL DISTRIBUTION WIDTH 13.4 % (11.5-14.5); WHITE BLOOD COUNT 4.5 K/uL (4.8-10.8)
[2017-02-05 09:19] LABS: CHLORIDE 106 mmol/L (98-107)
[2017-02-05 09:20] LABS: SODIUM 140 mmol/L (132-148)
[2017-02-05 09:21] LABS: POTASSIUM 4.2 mmol/L (3.6-5.2)
[2017-02-05 09:23] LABS: ALB/GLOB RATIO 1.1 (1.0-2.1); ALKALINE PHOSPHATASE 82 U/L (38-126); AST/SGOT 29 U/L (14-36); BILIRUBIN,TOTAL 0.2 mg/dL (0.2-1.3); BLOOD UREA NITROGEN 27 mg/dL (7-17); CARBON DIOXIDE 26 mmol/L (22-30); GFR AFRICAN-AMERICAN > 60; GLUCOSE,RANDOM 103 mg/dL (65-105); TOTAL PROTEIN 6.4 g/dL (6.3-8.3)
[2017-02-05 09:24] LABS: ALT/SGPT 35 U/L (9-52); CALCIUM 8.3 mg/dl (8.6-10.4); MAGNESIUM 2.4 mg/dL (1.6-2.3)
[2017-02-05] MEDS: Phenytoin 100 mg/4 ml Oral Susp UD PO SCH ×3 (09:40→17:28)
[2017-02-05] MEDS: Lidocaine 5% Patch TD SCH (09:40)
[2017-02-05] MEDS: Multiple Vitamins Tab PO SCH (09:41)
[2017-02-05 10:55] LABS: URINE BACTERIA MANY (<OCC); URINE BILIRUBIN NEGATIVE (NEGATIVE); URINE BLOOD NEGATIVE (NEGATIVE); URINE COLOR Yellow (YELLOW); URINE GLUCOSE (UA) 3+ mg/dL (Normal); URINE KETONE TRACE mg/dL (NEGATIVE); URINE LEUKOCYTE ESTERASE NEG Leu/uL (Negative); URINE PROTEIN NEGATIVE (NEGATIVE); URINE UROBILINOGEN NORMAL mg/dL (0.2-1.0); WBC URINE 5 /hpf (0-5)
--- NOTE | 2017-02-05 13:07 | PCM.PYCHPN ---
Psychiatric Progress Note - Psychiatric Progress Note Patient seen today, length of contact: 16 min Patient Chief Complaint: "I hear voices but don't pay attention" Problems Identified/Issues Discussed: The pt is seen, chart reviewed, case discussed with staff. She is seen with the team Symptoms are improving but needs more time to stabilize. Some meds held today bc she felt dizzy Still having some AH. Not manic, paranoid or suicidal/homicidal. Support given, OK used. Medication Change: Yes (detox changes daily) Medical Record Reviewed: Yes Mental Status Examination - Cognitive Function Orientation: Person, Place, Situation, Time Memory: Impaired Attention: Poor Concentration: Poor Association: WNL Fund of Knowledge: Poor - Mood Mood: Depressed, Anxious - Affect Affect: Constricted - Speech Speech: Slurred (due to stroke) - Formal Thought Process Formal Thought Process: No Impairment - Suicidal Ideation Suicidal Ideation: No - Homicidal Ideation Homicidal Ideation: No Goal/Treatment Plan - Goal/Treatment Plan Need for Continued Stay: Discharge may exacerbated symptoms, Severe functional impairment Progress Toward Problem(s) and Goals/Treatment Plan: Alcohol: -Librium detox -As needed medications -Support and psychoeducation -Attend groups and activities -OK and CBT for abstinence and relapse prevention Depression/psychotic symptoms: -Prozac started -Abilify started -Discontinue Zyprexa -Support and psychoeducation -CBT Seizure disorder: -Continue Dilantin -Dilantin level in a.m. -Depakote is increased from 500-1000 ER -Depakote level in 3 days -Monitor symptoms UTI: -Macrobid DM, HTN: -Med consult -FS coverage for now Estimated Date of D/C: 02/07/17
[2017-02-05 15:40] VITALS: RESP 18
[2017-02-05] MEDS: Divalproex 500 mg ER Tab PO SCH (17:52)
[2017-02-05] MEDS: (Lantus) Insulin Glargine, Recombinant SC SCH (21:58)
--- NOTE | 2017-02-06 07:54 | CP.PCM.PN ---
Addendum entered and electronically signed by Tricia Oneal DO 02/06/17 08 :06: Physical exam mistakenly left out before progress note was signed Gen: NAD, disheveled appearance Eyes: PERRL Heart: RRR, no murmurs Lungs: CTAB, no wheezes, rhonchi or rales Abd: soft, nontender, nondistended, +bs Ext: no edema Neuro: AAO x 3, able to move all 4 extremities Skin: warm, dry, no rashes Original Note: <Tricia Oneal I - Last Filed: 02/06/17 07:51> Subjective - Date & Time of Evaluation Date of Evaluation: 02/06/17 Time of Evaluation: 07:30 - Subjective Subjective: PGy3 on Medicine Service Patient seen and examined at bedside. Complains of headaches located in the front of her head described as 5/10, somewhat relieved with Ibuprofen, non- radiating and they feels like pressure which she states have been chronic in nature. Denies chest pain, SOB, fevers, chills, abdominal pain, nausea or vomiting. Objective - Vital Signs/Intake and Output Vital Signs (last 24 hours): Temp Pulse Resp BP Pulse Ox 98.1 F 65 18 108/64 96 02/06/17 06:17 02/06/17 06:17 02/06/17 06:17 02/06/17 06:17 02/06/17 06:17 - Medications Medications: Current Medications Aripiprazole (Abilify) 5 mg PO QPM [facility] Last Admin: 02/05/17 19:15 Dose: 5 mg Chlordiazepoxide (Librium) 25 mg PO Q4H PRN PRN Reason: Alcohol Withdrawal Last Admin: 02/03/17 16:02 Dose: 25 mg Chlordiazepoxide (Librium) 25 mg PO BID [facility] PRN Reason: Taper Stop: 02/07/17 17:59 Last Admin: 02/05/17 17:53 Dose: Not Given Clonidine HCl (Catapres) 0.1 mg PO Q4H PRN PRN Reason: Symptoms of alcohol withdrawl Last Admin: 02/03/17 17:40 Dose: 0.1 mg Divalproex Sodium (Depakote Er) 1,000 mg PO QPM [facility] Last Admin: 02/05/17 17:52 Dose: Not Given Famotidine (Pepcid) 20 mg PO BID [facility] Last Admin: 02/05/17 17:32 Dose: 20 mg Fluoxetine HCl (Prozac) 10 mg PO DAILY [facility] Last Admin: 02/05/17 09:41 Dose: 10 mg Folic Acid (Folic Acid) 1 mg PO DAILY [facility] Last Admin: 02/05/17 09:41 Dose: 1 mg Gabapentin (Neurontin) 300 mg PO TID [facility] Last Admin: 02/05/17 17:53 Dose: Not Given Haloperidol (Haldol) 5 mg PO Q4H PRN PRN Reason: Hallucinations, agitation Hydroxyzine HCl (Atarax) 25 mg PO Q4H PRN PRN Reason: Anxiety Last Admin: 02/03/17 16:02 Dose: 25 mg Ibuprofen (Motrin Tab) 600 mg PO Q6H PRN PRN Reason: Pain, moderate (4-7) Last Admin: 02/03/17 16:02 Dose: 600 mg Insulin Aspart (Novolog) 0 unit SC ACHS [facility] PRN Reason: Protocol Last Admin: 02/05/17 21:31 Dose: 2 unit Insulin Glargine (Lantus) 40 unit SC HS [facility] Last Admin: 02/05/17 21:58 Dose: 40 u Lidocaine (Lidoderm) 1 ea TD DAILY [facility] Last Admin: 02/05/17 09:40 Dose: 1 ea Lisinopril (Zestril) 40 mg PO DAILY [facility] Last Admin: 02/05/17 09:41 Dose: 40 mg Multivitamins (Hexavitamin) 1 tab PO DAILY [facility] Last Admin: 02/05/17 09:41 Dose: 1 tab Nitrofurantoin Macrocrystals (Macrobid) 100 mg PO Q12 [facility] Last Admin: 02/05/17 21:16 Dose: 100 mg Phenytoin (Dilantin) 100 mg PO TID [facility] Last Admin: 02/05/17 17:28 Dose: 100 mg Thiamine HCl (Vitamin B1 Tab) 100 mg PO DAILY [facility] Last Admin: 02/05/17 09:41 Dose: 100 mg Trazodone HCl (Desyrel) 50 mg PO HS PRN PRN Reason: Insomnia Last Admin: 02/04/17 21:59 Dose: 50 mg - Labs Labs: 02/05/17 08:58 02/05/17 08:58 Assessment and Plan - Assessment and Plan (Free Text) Assessment: (1) Diabetes mellitus Assessment and Plan: Continue ACCUCHECKS ACHS HgbA1C- 9.1 Continue home medication Lantus 40 mg HS Regular ISS Gabapentin 300 mg po TID for neuropathy Status: Acute (2) Dysuria Assessment and Plan: UA- Nitrate positive Urine C&S still pending Currently on Nitrofurantoin 100mg Q12h Status: Acute (3) Alcohol abuse Assessment and Plan: Management as per Detox team. Patient on Ativan taper. MVN PO daily Thiamine 100 mg PO daily Status: Acute (4) HTN (hypertension) Assessment and Plan: Bp controlled- Continue home medication Lisinopril 40 mg PO daily Status: Acute (5) Low back pain Assessment and Plan: Continue Lidoderm patch daily Status: Chronic (6) Headache Assessment and Plan: Chronic in Nature Continue Ibuprofen prn Status: Chronic (7) Prophylactic measure Assessment and Plan: Pepcid 20 mg PO BID Ambulation Status: Acute <Juan Carlos Miranda - Last Filed: 02/06/17 12:22> Objective - Vital Signs/Intake and Output Vital Signs (last 24 hours): Temp Pulse Resp BP Pulse Ox 98 F 84 18 104/69 98 02/06/17 10:30 02/06/17 10:30 02/06/17 10:30 02/06/17 10:30 02/06/17 10:30 - Labs Labs: 02/05/17 08:58 02/05/17 08:58 Attending/Attestation - Attestation I have personally seen and examined this patient.: Yes I have fully participated in the care of the patient.: Yes I have reviewed all pertinent clinical information, including history, physical exam and plan: Yes Notes (Text): 02/06/17 12:21 Patient was seen and examined at bedside today Patient has no new complaints Blood sugar is better controlled but we will add the 5 units of NovoLog before each meal for optimal control Patient to is cleared for discharge from medical standpoint on her home dose of insulin. Discussed with the patient and she does not want any prescription because she stated that she has insulin at home. Discussed the plan of care with the patient, medical reimbursement manager, nursing staff.
[2017-02-06] MEDS: (Novolog) Insulin Aspart, Recombinant 100 u/ml 10 ml vial SC SCH (08:30)
--- NOTE | 2017-02-06 09:26 | PCM.PYCHDC ---
Mental Status Examination - Mental Status Examination Orientation: Person, Place, Situation, Time Memory: Impaired Mood: Anxious Affect: Constricted Speech: Appropriate Attention: Poor Concentration: Poor Association: Loose Fund of Knowledge: Poor Formal Thought Process: Hallucinations, Loosening of associations Suicidal Ideation: No Current Homicidal Ideation?: No Discharge Summary - Discharge Note Reason for Hospitalization: Alcohol detox Laboratory Data: Abnormal Lab Results 02/05/17 02/05/17 02/05/17 08:58 10:28 21:25 POC Glucose (mg/dL) 324 H Urine Color Yellow Urine Clarity Hazy Urine pH 5.0 Ur Specific [place] 1.016 Urine Protein Negative Urine Glucose (UA) 3+ H Urine Ketones Trace Urine Blood Negative Urine Nitrate Positive H Urine Bilirubin Negative Urine Urobilinogen Normal Ur Leukocyte Esterase Neg Urine WBC (Auto) 5 Ur Squamous Epith Cells 4 Urine Bacteria Many H Phenytoin < 3.0 L Consultations:: List each consultation separately and include: 1. Reason for request. 2. Findings. 3. Follow-up Summary of Hospital Course include:: 1. Description of specific treatment plan utilized for patients during their course of treatmen. 2. Summarize the time- course for resolution of acute symptoms and/or regressed behaviors. 3. Describe issues identified and worked on during hospitalization. 4. Describe medication utilized. 5. Describe medical problems identified and treated. 6. Reassessment of suicide risk Summary of Hospital Course: The patient is seen, chart reviewed and case discussed. On admission: This is a 56-year-old female, , has 3 children, on disability living with parents. The patient is here for alcohol detox, which she somewhat minimizes and states she is drinks sometimes but "I go to the deep end." It was reported that she drinks more than that. She denies drug use though. She had been to detox and rehabilitation before. She also reports psychiatric symptoms, she hears voices which are scary to her and sometimes given commands. However, she denies getting suicide or homicide commands and currently she doesn't feel suicidal. She had been suicidal in the past and attempted a few times. She was hospitalized at [facility] but currently she states she feels better, except for the voices. She agreed to switch her medication from Zyprexa to Abilify, which is also needed because she has diabetes. The patient sees Dr. Kessler or Dr. Solomon but does not go to therapy or a program. She agreed to switch as well. Past psych history: As above. Diagnosed with bipolar disorder, but she does not report any clear-cut manic symptoms or episodes. She does have recurrence major depression, and perhaps schizoaffective disorder. Family psych history: Alcoholism Medical history: Diabetes, hypertension, seizure disorder. Last seizure was months ago. Hospital course: The pt was admitted and started on treatment with psychotherapy, support, psychoeducation and medications. [place] and CBT used. She was not very receptive as she was focused on her psych sxs and was somewhat depressed The pt attended groups and activities, as well as milieu therapy. All the risks and benefits of medications are discussed and the patient understood and agreed. After care discussed with the patient. She did not want rehab. She agreed to go to [facility] on Tuesday She actually left a day early bc she wanted to be with her grandchildren in [facility]. Her DM was very poor;y controlled but our medical team successfully stabilized the pt. Importance of compliance discussed. - Final Diagnosis (DSM 5) Condition upon Discharge: STABLE DSM 5: Alcohol withdrawal Alcohol use d/o - severe Major depression - recurrent, severe, with psychotic feat. DM HTN Seizure d/o Disposition: HOME/ ROUTINE Follow-up Treatment Plan: Continue below medications after discharge. Follow after care plan as discussed. [facility] Use relapse prevention skills Return to ER or call 911 if suicidal, homicidal or symptoms relapse. Stay away from stress, alcohol and drugs.
[2017-02-06] MEDS: Phenytoin 100 mg/4 ml Oral Susp UD PO SCH (10:36)
[2017-02-06] MEDS: Lidocaine 5% Patch TD SCH (10:37)
[2017-02-06] MEDS: Multiple Vitamins Tab PO SCH (10:41)
[2017-02-06 10:43] VITALS: BP 104/69; PULSE 84; TEMP 98; O2SAT 98
[2017-02-06] MEDS ORDERED: (Novolog) Insulin Aspart, Recombinant 100 u/ml 10 ml vial SC SCH (11:30)
== END 2017-02-06 11:00 | disposition home or self-care (01) | DRG 750 ==
LOC: C.ER 10:41 → C.7D 13:05
PROVIDERS: ADMIT Psychiatry & Neurology Psychiatry; ATTEND Psychiatry & Neurology Psychiatry
PROC: HZ2ZZZZ Detoxification Services for Substance Abuse Treatment (ICD-10-PCS; principal; 2017-02-03)
PROC: HZ59ZZZ Individual Psychotherapy for Substance Abuse Treatment, Supportive (ICD-10-PCS; 2017-02-03)
PROC: GZ3ZZZZ Medication Management (ICD-10-PCS; 2017-02-03)
PROC: GZ56ZZZ Individual Psychotherapy, Supportive (ICD-10-PCS; 2017-02-03)
DX: F10.230 Alcohol dependence with withdrawal, uncomplicated (principal); F33.3 Major depressive disorder, recurrent, severe with psychotic symptoms; N39.0 Urinary tract infection, site not specified; F10.231 Alcohol dependence with withdrawal delirium; E11.65 Type 2 diabetes mellitus with hyperglycemia; F10.229 Alcohol dependence with intoxication, unspecified; I11.9 Hypertensive heart disease without heart failure; E11.42 Type 2 diabetes mellitus with diabetic polyneuropathy; B96.1 Klebsiella pneumoniae [K. pneumoniae] as the cause of diseases classified elsewhere; G40.909 Epilepsy, unspecified, not intractable, without status epilepticus; K21.9 Gastro-esophageal reflux disease without esophagitis; M19.90 Unspecified osteoarthritis, unspecified site; F17.210 Nicotine dependence, cigarettes, uncomplicated; J45.909 Unspecified asthma, uncomplicated; E78.00 Pure hypercholesterolemia, unspecified; Z86.711 Personal history of pulmonary embolism; Z79.4 Long term (current) use of insulin; Z91.14 Patient's other noncompliance with medication regimen; Z91.11 Patient's noncompliance with dietary regimen; Z90.49 Acquired absence of other specified parts of digestive tract; Z98.84 Bariatric surgery status; Y90.0 Blood alcohol level of less than 20 mg/100 ml

== ENCOUNTER 2017-02-08 09:34 | Inpatient (IN) | payer MEDICAID, OTHER ==
[2017-02-08 09:52] VITALS: BMI 27.4
--- NOTE | 2017-02-08 10:20 | C.PDOC ---
History Of Present Illness Patient brought to ED by family for evaluation of confusion, slurred speech since getting home from detox discharge on Tuesday. They state she has been drinking alcohol and they also suspect she has been mixing in other medications/ drugs. Yesterday patient went to dentist and had procedure done on right side, was given "pain medication". Family thinks she was using pain medication and mixing it with alcohol. Patient only c/o leg pain and B/L arm pain/weakness. Time Seen by Provider: 02/08/17 09:42 Chief Complaint (Nursing): Weakness/Neurological Deficit History Per: Family History/Exam Limitations: clinical condition (appears under influence) Onset/Duration Of Symptoms: Unknown Current Symptoms Are (Timing): Still Present Past Medical History Reviewed: Historical Data, Nursing Documentation, Vital Signs Vital Signs: Last Vital Signs Temp 97.4 F L 02/12/17 14:45 Pulse 77 02/12/17 14:45 Resp 20 02/12/17 14:45 BP 138/81 02/12/17 14:45 Pulse Ox 98 02/13/17 15:28 - Medical History PMH: Anxiety, Arthritis, Asthma, Back Problems (herniated discs), Bipolar Disorder, Colonic Polyps (2014), Depression, Diabetes (type 2), Hepatitis (C), HTN, Hypercholesterolemia, Pulmonary Embolism, Seizures Surgical History: Cholecystectomy, Endoscopy (2014) - [facility] Procedures DETOXIFICATION SERVICES FOR SUBSTANCE ABUSE TREATMENT (02/03/17) INDIV PSYCHOTHERAPY FOR SUBSTANCE ABUSE TREATMENT, SUPPORT (02/03/17) INDIVIDUAL PSYCHOTHERAPY, SUPPORTIVE (02/03/17) MEDICATION MANAGEMENT (02/03/17) Family History: States: Unknown Family Hx - Social History Hx Tobacco Use: No Hx Alcohol Use: Yes Hx Substance Use: Yes (use cocaine before) - Immunization History Hx Tetanus Toxoid Vaccination: No Hx Influenza Vaccination: No Hx Pneumococcal Vaccination: No Review Of Systems Review Of Systems: ROS cannot be obtained secondary to pt's inabilty to answer questions. (patient appears to be under influence of drugs/alcohol) Physical Exam - Physical Exam Appears: Non-toxic, Other (awake, alert, appears under influence) Head: Normacephalic, Other (right sided facial swelling (s/p dental procedure)) Eye(s): bilateral: Normal Inspection, Other (pupils dlated and reactive) Oral Mucosa: Moist Cardiovascular: Rhythm Regular Respiratory: Normal Breath Sounds, No Rales, No Rhonchi, No Wheezing Gastrointestinal/Abdominal: Normal Exam, Bowel Sounds, Soft, No Tenderness Extremity: Normal ROM, No Calf Tenderness, No Deformity, No Swelling Extremity: Bilateral: Atraumatic, Normal Color And Temperature, Normal ROM Neurological/Psych: No Normal Speech (slurred ), Normal Motor, Normal Sensation ED Course And Treatment - Laboratory Results Result Diagrams: 02/11/17 06:21 02/11/17 06:21 ECG: Interpreted By Me, Viewed By Me (NSR 86 bpm, left axis deviation, no acute ST/T wave changes) ECG Interpretation: No Acute Changes O2 Sat by Pulse Oximetry: 98 (RA) Pulse Ox Interpretation: Normal - Radiology CXR: Interpreted by Me, Viewed By Me CXR Interpretation: No: No Acute Disease, Infiltrates - CT Scan/US ct head Other Rad Studies (CT/US): Read By Radiologist, Radiology Report Reviewed CT/US Interpretation: Accession No. : [id number]. Patient Name / ID : SHIRLEY CASTILLO / [id number]. Exam Date : 02/08/2017 10:48:58 ( Approved ). Study Comment : Sex / Age : F / 56Y. Creator : Nidia Garza MD. Dictator : Nidia Garza MD. Igniter Capper : Senior Technical Analyst : Nidia Garza MD. Approver2 : Report Date : 02/08/2017 11:24:34. My Comment : . PROCEDURE: CT HEAD WITHOUT CONTRAST. HISTORY: AMS. COMPARISON: None available. TECHNIQUE: Axial computed tomography images were obtained through the head/brain without intravenous contrast. Radiation dose: Total exam DLP = 833.40 mGy-cm. This CT exam was performed using one or more of the following dose reduction techniques: Automated exposure control, adjustment of the mA and/ or kV according to patient size, and/or use of iterative reconstruction technique. FINDINGS: HEMORRHAGE: No intracranial hemorrhage. BRAIN: Diffuse atrophy with prominence of the ventricles and sulci noted. No mass effect or edema.Scattered periventricular and subcortical white matter hypodensities, which are nonspecific, but often seen with chronic microvascular ischemic disease. Please note that MRI with diffusion imaging is more sensitive in the detection of acute ischemic event. VENTRICLES: No hydrocephalus. CALVARIUM: Unremarkable. PARANASAL SINUSES: Mucosal thickening of the included portions right maxillary sinus and right ethmoid air cells. MASTOID AIR CELLS: Unremarkable as visualized. No inflammatory changes. OTHER FINDINGS : None. IMPRESSION: No acute intracranial pathology identified. Generalized atrophy. Nonspecific white matter changes. Progress Note: Blood work, CT head, EKG, UA, UDS ordered and reviewed. After CT head (-) for bleed, ASA VT given. Insulin IV given for hyperglycemia, and PO Lisinopril, PO metoprolol, and IV hydralazine. - Physician Consult Information Physician Contacted: Gautam Melchor Outcome Of Conversation: Discussed patient with Dr. Salas melchor, he agrees with admission for AMS, alcohol dependence, slurred speech, r/o cva vs hepatic encephalopathy. Critical Care Time - Critical Care Note Total Time (in mins): 35 Documented critical care: time excludes all time spent performing seperately billable procedures. NIHSS Stroke Scale - Date/Time Evaluation Performed Date Performed: 02/08/17 Time Performed: 09:54 When Was NIHSS Performed: Baseline - How Severe is the Stoke Level of Consciousness: 0=Alert LOC to Questions: 0=Both comments correct LOC to commands: 0=Obeys both correctly Best Gaze: 0=Normal Visual: 0=No visual loss Facial: 1=Minor asymmetry Motor Arm - Left: 0=No drift Motor Arm - Right: 0=No drift Motor Leg - Left: 0=No drift Motor Leg - Right: 0=No drift Limb Ataxia: 0=Absent Sensory: 0=Normal Best Language: 0=No aphasia Dysarthia: 1=Mild to moderate slurring Extinction & Inattention (Neglect): 0=Normal, no object Score: 2 Severity Of Stroke: 1-4= Minor Stroke rTPA Inclusion/Exclusion - Refusal of Treatment Patient Refused Treatment: No - Inclusion Criteria for Altepase Patient is 18 years or Older: Yes The Clinical Diagnosis of Ischemic Stroke That is Causing a Potentially Disabling Neurological Deficit: No Time of Onset is Well Established to be Less Than 270 Minute Before Treatment Would Begin: No Risk/Benefit Discussed With Patient/Family Member Present: No Medical Decision Making Medical Decision Making: differential diagnoses considered: CVA/TIA, substance abuse, alcohol abuse, hepatic encephalopathy, seizure disorder, dementia, delirium, sepsis, electrolyte abnormality, renal failure, psychiatric problem Disposition - Disposition Disposition: HOSPITALIZED Disposition Time: 12:59 Condition: STABLE - Clinical Impression Clinical Impression: Altered mental status, Alcohol dependence, Slurred speech Decision To Admit - Pt Status Changed To: Hospital Disposition Of: Inpatient - Admit Certification Admit to Inpatient:: After my assessment, the patient will require hospitalization for at least two midnights. This is because of the severity of symptoms shown, intensity of services needed, and/or the medical risk in this patient being treated as an outpatient. - InPatient: Physician Admission Certification: I certify that this patient requires 2 or more midnights of care for the following reason:: see notes - . Bed Request Type: Telemetry Admitting Physician: Gautam Melchor Patient Diagnosis: Altered mental status, Alcohol dependence, Slurred speech
[2017-02-08 10:26] LABS: BASO % 0.6 % (0.0-2.0); EOS # 0.2 K/uL (0.0-0.7); EOS % 2.4 % (0.0-4.0); HEMATOCRIT 34.9 % (34.0-47.0); LYMPH # 1.3 K/uL (1.0-4.3); LYMPH % 16.9 % (20.0-40.0); MEAN CELL VOLUME 95.5 fL (81.0-99.0); MEAN CORPUSCULAR HEMOGLOBIN 30.9 pg (27.0-31.0); MEAN CORPUSCULAR HGB CONC 32.3 g/dL (33.0-37.0); MEAN PLATELET VOLUME 9.8 fL (7.2-11.7); MONO # 0.9 K/uL (0.0-0.8); MONO % 11.6 % (0.0-10.0); RED CELL DISTRIBUTION WIDTH 13.3 % (11.5-14.5)
[2017-02-08 10:30] LABS: WHITE BLOOD COUNT 7.4 K/uL (4.8-10.8)
[2017-02-08 10:35] LABS: CHLORIDE 102 mmol/L (98-107)
[2017-02-08 10:36] LABS: POTASSIUM 5.6 mmol/L (3.6-5.2); SODIUM 139 mmol/L (132-148)
[2017-02-08 10:38] LABS: BILIRUBIN,TOTAL 0.3 mg/dL (0.2-1.3); CARBON DIOXIDE 26 mmol/L (22-30); GFR AFRICAN-AMERICAN > 60
[2017-02-08 10:39] LABS: ALB/GLOB RATIO 1.2 (1.0-2.1); ALCOHOL SERUM < 10 mg/dl (0-10); ALKALINE PHOSPHATASE 96 U/L (38-126); ALT/SGPT 29 U/L (9-52); AST/SGOT 23 U/L (14-36); BLOOD UREA NITROGEN 23 mg/dL (7-17); GLUCOSE,RANDOM 342 mg/dL (65-105); TOTAL PROTEIN 7.5 g/dL (6.3-8.3)
[2017-02-08 10:51] LABS: RBC URINE 7 /hpf (0-3); URINE BILIRUBIN NEGATIVE (NEGATIVE); URINE BLOOD NEGATIVE (NEGATIVE); URINE COLOR Straw (YELLOW); URINE GLUCOSE (UA) 3+ mg/dL (Normal); URINE KETONE NEGATIVE (NEGATIVE); URINE LEUKOCYTE ESTERASE TRACE Leu/uL (Negative); URINE PROTEIN NEGATIVE (NEGATIVE); URINE UROBILINOGEN NORMAL mg/dL (0.2-1.0)
[2017-02-08 10:52] LABS: URINE BACTERIA MOD (<OCC); WBC URINE 13 /hpf (0-5)
--- NOTE | 2017-02-08 11:26 | CT ---
PROCEDURE: CT HEAD WITHOUT CONTRAST. HISTORY: AMS COMPARISON: None available. TECHNIQUE: Axial computed tomography images were obtained through the head/brain without intravenous contrast. Radiation dose: Total exam DLP = 833.40 mGy-cm. This CT exam was performed using one or more of the following dose reduction techniques: Automated exposure control, adjustment of the mA and/or kV according to patient size, and/or use of iterative reconstruction technique. FINDINGS: HEMORRHAGE: No intracranial hemorrhage. BRAIN: Diffuse atrophy with prominence of the ventricles and sulci noted. No mass effect or edema.Scattered periventricular and subcortical white matter hypodensities, which are nonspecific, but often seen with chronic microvascular ischemic disease. Please note that MRI with diffusion imaging is more sensitive in the detection of acute ischemic event. VENTRICLES: No hydrocephalus. CALVARIUM: Unremarkable. PARANASAL SINUSES: Mucosal thickening of the included portions right maxillary sinus and right ethmoid air cells. MASTOID AIR CELLS: Unremarkable as visualized. No inflammatory changes. OTHER FINDINGS: None. IMPRESSION: No acute intracranial pathology identified. Generalized atrophy. Nonspecific white matter changes.
--- NOTE | 2017-02-08 12:56 | RAD ---
PROCEDURE: CHEST RADIOGRAPH, 1 VIEW. Technique: Single view portable semi erect @ 10:10. HISTORY: AMS COMPARISON: None available. FINDINGS: LUNGS: Clear. PLEURA: No pneumothorax or pleural fluid seen. CARDIOVASCULAR: Normal. OSSEOUS STRUCTURES: No significant abnormalities. VISUALIZED UPPER ABDOMEN: Normal. OTHER FINDINGS: None. IMPRESSION: No active disease.
[2017-02-08] MEDS ORDERED: (Novolin R) Insulin Human Regular 100 units/ml vial IV ONE (13:42)
[2017-02-08] MEDS ORDERED: (Novolin R) Insulin Human Regular 100 units/ml vial ONE (14:02)
[2017-02-08] MEDS ORDERED: (Novolog) Insulin Aspart, Recombinant 100 u/ml 10 ml vial SC SCH ×2 (16:30)
[2017-02-08] MEDS ORDERED: Dextrose 5%/0.45% NS 1,000 ML IV SCH (19:15)
--- NOTE | 2017-02-08 19:20 | CP.PCM.HP ---
History of Present Illness - History of Present Illness History of Present Illness: Patient brought to ED by family for evaluation of confusion, slurred speech since getting home from detox discharge on Tuesday. They state she has been drinking alcohol and they also suspect she has been mixing and other medication/ drugs. Yesterday patient went to dentist and had procedure done on right side, was given pain medication. Family thinks she was using pain medication and mixing it with alcohol. Patient only complaint of leg pain and bilateral arm pain/weakness. Present on Admission - Present on Admission Any Indicators Present on Admission: No Past Patient History - Past Medical History & Family History Past Medical History?: Yes - Past Social History Smoking Status: Light Smoker < 10 Cigarettes Daily - CARDIAC Hx Hypercholesterolemia: Yes Hx Hypertension: Yes - PULMONARY Hx Asthma: Yes Hx Pulmonary Embolism: Yes - NEUROLOGICAL Hx Seizures: Yes - HEENT Hx HEENT Problems: No - RENAL Hx Chronic Kidney Disease: No - ENDOCRINE/METABOLIC Hx Endocrine Disorders: Yes Hx Diabetes Mellitus Type 2: Yes - HEMATOLOGICAL/ONCOLOGICAL Hx Human Immunodeficiency Virus (HIV): No - INTEGUMENTARY Hx Dermatological Problems: No - MUSCULOSKELETAL/RHEUMATOLOGICAL Hx Arthritis: Yes - GASTROINTESTINAL Hx Gastrointestinal Disorders: Yes Hx Gastroesophageal Reflux: Yes Other/Comment: GASTRIC BYPASS, PEPTIC ULCER DISEASE - GENITOURINARY/GYNECOLOGICAL Hx Sexually Transmitted Disorders: No - PSYCHIATRIC Hx Anxiety: Yes Hx Bipolar Disorder: Yes Hx Depression: Yes Hx Substance Use: Yes (use cocaine before) - SURGICAL HISTORY Hx Cholecystectomy: Yes - ANESTHESIA Hx Anesthesia: Yes Hx Anesthesia Reactions: No Hx Malignant Hyperthermia: No Meds Allergies/Adverse Reactions: Allergies Allergy/AdvReac Type Severity Reaction Status Date / Time No Known Allergies Allergy Verified 02/08/17 09:51 Results - Vital Signs Recent Vital Signs: Last Vital Signs Temp 98.1 F 02/08/17 17:12 Pulse 71 02/08/17 17:12 Resp 18 02/08/17 17:12 BP 115/66 02/08/17 17:12 Pulse Ox 100 02/08/17 17:12 - Labs Result Diagrams: 02/11/17 06:21 02/11/17 06:21 Labs: Laboratory Results - last 24 hr 02/08/17 02/08/17 13:45 17:23 POC Glucose (mg/dL) 374 H Ammonia 9 Assessment & Plan (1) Alcohol abuse Status: Acute (2) Alcohol dependence Status: Acute (3) Alcohol intoxication Status: Acute (4) Altered mental status Status: Acute (5) Bipolar disorder Status: Acute (6) Diabetes mellitus Status: Acute (7) Dysuria Status: Acute (8) Exacerbation of chronic back pain Status: Acute (9) HTN (hypertension) Status: Acute (10) Hyperglycemia Status: Acute (11) Hypoglycemia Status: Acute (12) Prophylactic measure Status: Acute (13) Seizure disorder Status: Acute (14) Slurred speech Status: Acute (15) UTI (urinary tract infection) Status: Acute - Assessment and Plan (Free Text) Plan: Consult psychiatry IV fluid Cogentin Librium Plavix Lovenox Folic acid Neurontin Toradol Zestril HexaVitamin Thiamine
[2017-02-08] MEDS: (Novolog) Insulin Aspart, Recombinant 100 u/ml 10 ml vial SC SCH (22:28)
[2017-02-09] MEDS: Multiple Vitamins Tab PO SCH (09:35)
[2017-02-09] MEDS: Pantoprazole 40 mg EC Tab PO SCH (09:35)
[2017-02-09] MEDS: Piperacillin/Tazobact 3.375 GM in Sodium Chloride 100 ML IVPB SCH ×2 (09:38→19:06)
[2017-02-09] MEDS: (Novolog) Insulin Aspart, Recombinant 100 u/ml 10 ml vial SC SCH ×4 (09:41→21:48)
[2017-02-09] MEDS: Sodium Chloride 0.9% 1,000 ML IV SCH ×2 (09:42→21:55)
[2017-02-09] MEDS: Enoxaparin 40 mg Syringe SC SCH (09:44)
--- NOTE | 2017-02-09 09:44 | MRI ---
PROCEDURE: MRI BRAIN WITHOUT CONTRAST HISTORY: Stroke COMPARISON: Noncontrast head CT from 02/08/2017 TECHNIQUE: Multiplanar, multisequence MR images of the brain were obtained without intravenous contrast enhancement. FINDINGS: HEMORRHAGE: None DWI: No evidence of an acute or early subacute infarction. BRAIN PARENCHYMA: There is no mass, mass effect or abnormal extra-axial fluid collection. There is no territorial infarction. The midline sagittal structures are normal. VENTRICLES: There is mild global parenchymal volume loss and proportionate enlargement of the ventricles and cortical sulci, advanced for the patient's age. CRANIUM: There is normal bone marrow signal pattern. ORBITS: Grossly unremarkable. PARANASAL SINUSES/MASTOIDS: There is moderate polypoid mucosal thickening in the right maxillary sinus and a small retention cyst/ polyp, and mild two moderate mucosal thickening in the frontal sinuses and ethmoid air cells, worse on the right. VASCULAR SYSTEM: There are normal signal voids in the larger intracranial arteries. OTHER FINDINGS: None. IMPRESSION: 1. No acute intracranial abnormality. Specifically, no evidence for acute infarction. 2. Mild global parenchymal volume loss, advanced for the patient's age. 3. Chronic pansinusitis, worse in the right maxillary sinus.
[2017-02-09] MEDS: Calcium-Vit D 500 mg-200 Units Tab UD PO SCH (09:51)
[2017-02-09] MEDS ORDERED: (Novolog) Insulin Aspart, Recombinant 100 u/ml 10 ml vial SC SCH (11:30)
--- NOTE | 2017-02-09 11:43 | CARD ---
APPROVED REPORT EKG Measurement Heart [id number] ME [id number] <Conclusion> Normal sinus rhythm Normal ECG
--- NOTE | 2017-02-09 14:06 | CARD ---
APPROVED REPORT EXAM: Two-dimensional and M-mode echocardiogram with Doppler and color Doppler. Other Information Quality : GoodRhythm : NSR INDICATION ALCOHOL ABUSED RISK FACTORS Hypertension Diabetes M-Mode DIMENSIONS RVDd0.61 (2.1-3.2cm)Left Atrium (MM)3.09 (2.5-4.0cm) IVSd1.25 (0.7-1.1cm)Aortic Root2.85 (2.2-3.7cm) LVDd4.34 (4.0-5.6cm)Aortic Cusp Exc.1.94 (1.5-2.0cm) PWd1.25 (0.7-1.1cm)FS (%) 27 % LVDs3.19 (2.0-3.8cm)LVEF (%)52 (>50%) Aortic Valve AoV Peak Pbghxfrv835.6cm/Cortes Peak GR.16mmHgAI P 1/2 Bisx580ik Mitral Valve MV E Ymkvljzl09.0cm/sMV A Girxjmtc39.6cm/sE/A ratio1.1 TDI E/Lateral E'0.0E/Medial E'0.0 Tricuspid Valve TR Peak Eatifniq513ri/sTR Peak Gr.09ksTkJTVY14wzMs LEFT VENTRICLE The left ventricle is normal size. There is normal left ventricular wall thickness. The left ventricular function is normal. About 65%. The left ventricular ejection fraction is within the normal range. No regional wall motion abnormalities noted. The left ventricular diastolic function is indeterminate. No left ventricle thrombus noted on this study. There is no ventricular septal defect visualized. There is no left ventricular aneurysm. There is no mass noted in the left ventricle. RIGHT VENTRICLE The right ventricle is normal size. There is normal right ventricular wall thickness. The right ventricular systolic function is normal. ATRIA The left atrium size is normal. The right atrium size is normal. The interatrial septum is intact with no evidence for an atrial septal defect. AORTIC VALVE The aortic valve is normal in structure and function. Mild aortic regurgitation is present. There is no aortic valvular stenosis. There is no aortic valvular vegetation. MITRAL VALVE The mitral valve is normal in structure and function. There is no evidence of mitral valve prolapse. There is no mitral valve stenosis. There is no mitral valve regurgitation noted. TRICUSPID VALVE The tricuspid valve is normal in structure and function. There is mild tricuspid valve regurgitation noted. There is no tricuspid valve prolapse or vegetation. There is no tricuspid valve stenosis. PULMONIC VALVE The pulmonary valve is normal in structure and function. There is no pulmonic valvular regurgitation. There is no pulmonic valvular stenosis. GREAT VESSELS The aortic root is normal in size. The ascending aorta is normal in size. The pulmonary artery is normal. The IVC is normal in size and collapses >50% with inspiration. PERICARDIAL EFFUSION The pericardium appears normal. There is no pleural effusion. <Conclusion> Normal LV EF Mild aortic regurgitation.
--- NOTE | 2017-02-09 14:37 | PCM.PSYCH ---
Initial Psychiatric Evaluation - Initial Psychiatric Evaluation Chief Complaint (in patient's own words): katheryn History of Present Illness and Precipitating Events: History was obtained via patient, family members and initial H&P, as pt was somnolent and unable to give full history at the time of exam. Pt is a 56 yo F who is single, lives with her parents, has 3 sons, and collect SSI. She was admitted for altered mental status on 02/08 and psychiatric consult was requested for history of alcohol use disorder and MDD. Pt was treated at [facility] for alcohol detox from 02/03-02/06 and was discharged to home with instructions to follow up with [facility]. Pt complains of confusion and dizziness since being discharged 3 days ago. Family suspects pt began drinking again. Pt vaguely states she usually drinks "4-5 mini bottles of whisky" daily, however, states last drink was 02/03/17. Pt denies shaking, seizure, abdominal pain, nausea, vomiting, diarrhea, and agitation. Reports previous history of suicidal ideation, but not currently. Also reports hearing voices in the past, but not currently. Denies visual hallucinations and homicidal ideation. On exam, pt is somnolent, oriented x3, with depressed mood and constricted affect, speech is slurred and disorganized. Psych Hx: Bipolar disorder, MDD, alcohol use disorder. History of previous suicide attempt. Family Psych Hx: alcohol use disorder PMHx: Diabetes, hypertension, hypercholesterolemia, seizure disorder, asthma, hepatitis C Current Medications: Active Medications Generic Name Dose Route Start Last Admin Trade Name Freq PRN Reason Stop Dose Admin Acetaminophen 650 mg 02/09/17 08:25 02/09/17 09:36 Tylenol 325mg Tab PO 650 mg Q6 PRN Administration Headache Benztropine Mesylate 2 mg 02/09/17 10:00 02/09/17 09:34 Cogentin PO 2 mg DAILY PINA Administration Calcium/Vitamin D 1 tab 02/09/17 10:02/09/17 09:51 Oyster Shell Calcium/Vitamin D 500 Mg-200 Iu PO 1 tab DAILY PINA Administration Chlordiazepoxide 25 mg 02/08/17 19:09 Librium PO Q8 PRN Agitation Clopidogrel Bisulfate 75 mg 02/09/17 10:00 02/09/17 09:35 Plavix PO 75 mg DAILY PINA Administration Enoxaparin Sodium 40 mg 02/09/17 10:00 02/09/17 09:44 Lovenox SC 40 mg DAILY PINA Administration Folic Acid 1 mg 02/09/17 10:00 02/09/17 09:35 Folic Acid PO 1 mg DAILY PINA Administration Gabapentin 300 mg 02/08/17 19:30 02/09/17 14:22 Neurontin PO Not Given TID PINA Sodium Chloride 1,000 mls @ 75 mls/hr 02/09/17 08:30 02/09/17 09:42 Sodium Chloride 0.9% IV 75 mls/hr .[id number] PINA Administration Piperacillin Sod/Tazobactam 100 mls @ 200 mls/hr 02/09/17 09:00 02/09/17 09:38 Sod 3.375 gm/ Sodium Chloride IVPB 200 mls/hr Q8H PINA Administration Insulin Aspart 0 unit 02/09/17 11:30 02/09/17 12:53 Novolog SC 8 unit ACHS PINA Administration Protocol Lisinopril 40 mg 02/09/17 10:00 02/09/17 09:34 Zestril PO 40 mg DAILY PINA Administration Multivitamins 1 tab 02/09/17 10:00 02/09/17 09:35 Hexavitamin PO 1 tab DAILY PINA Administration Olanzapine 10 mg 02/09/17 10:00 02/09/17 09:51 Zyprexa PO 10 mg DAILY PINA Administration Pantoprazole Sodium 40 mg 02/09/17 10:00 02/09/17 09:35 Protonix Ec Tab PO 40 mg DAILY PINA Administration Phenytoin Sodium 100 mg 02/08/17 19:30 02/09/17 14:23 Dilantin PO 100 mg TID PINA Administration Thiamine HCl 100 mg 02/09/17 10:00 02/09/17 09:51 Vitamin B1 Tab PO 100 mg DAILY PINA Administration Past Psychiatric History - Past Psychiatric History Previous Treatment History: Inpatient Pertinent Medical Hx (Current Medical&Sleep Prob, Allergies): Allergies Allergy/AdvReac Type Severity Reaction Status Date / Time No Known Allergies Allergy Verified 02/08/17 09:51 Gabapentin [Neurontin] 300 mg PO TID 01/20/15 Famotidine 20 mg PO HS 09/13/16 Lidocaine 5% [Lidoderm] 1 appl TOP DAILY 09/13/16 Phenytoin, Extended [Dilantin] 100 mg PO TID 09/13/16 Benztropine [Benztropine Mesylate] 2 mg PO DAILY 01/24/17 Bisacodyl [Ducolax] 5 mg PO DAILY 01/24/17 Calcium Carbonate/Vitamin D3 [Oysco 500 + D 500 mg-200 Iu] 1 tab PO DAILY Cholecalciferol (Vitamin D3) [Vitamin D3] 1,000 unit PO DAILY 01/24/17 Divalproex Sodium 250 mg PO DAILY 01/24/17 Divalproex Sodium [Divalproex Sodium ER] 250 mg PO DAILY 01/24/17 Folic Acid 1 mg PO DAILY 01/24/17 Insulin Aspart [Novolog FLEXPEN] 100 units SC HS PRN 01/24/17 Lisinopril [Zestril] 40 mg DAILY 01/24/17 Multivitamin [Daily Tracey] 1 tab PO DAILY 01/24/17 OLANZapine [Zyprexa Zydis] 10 mg PO DAILY 02/03/17 Review of Systems - Review of Systems All systems: reviewed and no additional remarkable complaints except - Psychiatric Psychiatric: Change in Appetite, Depression, Hopelessness, Irritability Mental Status Examination - Personal Presentation Personal Presentation: Looks stated age - Affect Affect: Constricted, Depressed - Motor Activity Motor Activity: Psychomotor Retardation - Reliability in Providing Information Reliability in Providing Information: Poor, due to alteration in thoughts, Poor , due to cognitve impairment - Speech Speech: Disorganized - Mood Mood: Depressed, Anxious - Formal Thought Process Formal Thought Process: Delusions, Paranoia, Loosening of associations - Obsessions/Compulsions Obsessions: No Compulsions: No - Cognitive Functions Orientation: Place Sensorium: Drowsy, Lethargic Estimate of Intelligence: Below average Judgement: Imparied, as evidence by: Poor judgement, Imparied, as evidence by: Lack of insight into illness - Risk Risk: Diminished functioning DSM 5 DX - DSM 5 DSM 5 Diagnosis: alcohol use disorder severe Major depressive disorder recurrent severe with psychotic features - Recommended/Plan of Treatment Treatment Recommendations and Plan of Treatment: alcohol use disorder severe Major depressive disorder recurrent severe with psychotic features Hold all the meds. Psych will f/u tomorrow. - Smoking Cessation Smoking Cessation Initiated: No
--- NOTE | 2017-02-09 15:44 | CON ---
DATE: 02/09/2017 ROOM: 663 HISTORY OF PRESENT ILLNESS: This is a 56-year-old female with known history of type 2 insulin-requir ing diabetes with also concomitant chronic schizoaffective disorder and is now being referred for sarahi betic evaluation because of marked hyperglycemic accelerations as noted thereof. She has been on a v ariable dose of Levemir and NovoLog given at home and taken very erratically with no adherence to her daily dose regimen nor to healthy food choices. PAST MEDICAL HISTORY: As mentioned above, history of type 2 insulin-requiring diabetes on a variable insulin dose regimen, taken very erratically as noted; history of hypertensive cardiovascular diseas e and dyslipidemia, history of generalized anxiety and depression with underlying chronic schizoaffec tive disorder and has been on psychotropic medications, history of morbid obesity and underwent a gas tric bypass some years ago as noted, history of hepatitis C as noted in the medical documentation in the chart, history of pulmonary embolism and was previously on oral anticoagulation therapy; history of generalized seizure disorder, also on anti-seizure medications at this time; history of generalize d osteoarthritis and severe low back pain with chronic pain syndrome and significant history of lumba r disk herniations, history of colonic polyposis and being followed closely by GI. FAMILY HISTORY: Positive for hypertension and diabetes. SOCIAL HISTORY: Admits to nicotine dependence with chronic alcoholism and recent alcoholic intoxicat ion, despite a recent admission to rehab for detox; history of prior illicit drug use with previous u sarai of cocaine as noted. REVIEW OF SYSTEMS: Admits to generalized body weakness with easy fatigability and tiredness and subo ptimal energy level. Also admits to dizziness and lightheadedness, worse on the day of admission. N o chest pains or palpitations or PNDs, but her oral intake is variable with nausea, dyspepsia and epi sodic vomiting episodes. Also, admits to marked polyuria, nocturia, polydipsia, and about a 5-pound or so weight loss. Admits to lower extremity paresthesias and painful neuropathic pain, especially n octurnally. PHYSICAL EXAMINATION: GENERAL: This is an average built female in no apparent distress. VITAL SIGNS: Blood pressure 140/80, pulse of 70 beats per minute and regular, temperature 98, respir ations 20. Height is 5 feet 2 inches, weight is 145 pounds. HEENT: Head normocephalic. Eyes anicteric with pink conjunctivae. Fundoscopy not possible at this time. Ears, nose and throat otherwise normal. NECK: Supple. Thyroid gland is normal size. No carotid bruits or any cervical adenopathy. CARDIOPULMONARY: Has an adynamic precordium. S1, S2 is rapid and regular. LUNGS: Clear to auscultation. ABDOMEN: Flat, soft with positive bowel sounds. EXTREMITIES: No peripheral edema. Pulses are +2 bilaterally. LABORATORY DATA: Her glucose levels today are ranging from 339-410 and 476 mg/dL. Her latest chemis tries showed a BUN of 23, sodium 139, potassium 5.6, chloride 102, CO2 26, glucose 342 and creatinine 0.8. ASSESSMENT: This is a 56-year-old female with uncontrolled and decompensated type 2 insulin-requirin g diabetes with marked hyperglycemic accelerations related to a subtherapeutic insulin regimen on the background of very poor dietary adherence and marked indiscretions with a variable insulin dose trent men given also at home. She also has diabetic painful polyneuropathy on the background of lumbar dis k disease as noted. PLAN OF MANAGEMENT: As discussed with the patient and staff, will modify her current insulin regimen and switch over to a basal and bolus insulin dose combination which is more physiologic as ordered. Will titrate incrementally as indicated to optimize metabolic control. Will start her on Lantus giv en as 30 units subQ at bedtime daily to start tonight. Will also start her on NovoLog given as a fix ed dose of 12 units subQ t.i.d. before meals as ordered. Will modify the coverage scale to obviate h ypoglycemia and detailed orders have been given. Will follow. Lupe Eagle MD cc: [id number] TT: 02/09/2017 15:43:57 Confirmation # [id number] Dictation # [id number] mn
--- NOTE | 2017-02-09 16:34 | CT ---
PROCEDURE: CT MAXILLOFACIAL BONES WITHOUT CONTRAST HISTORY: R facial swelling COMPARISON: None TECHNIQUE: Contiguous axial CT images of the maxillofacial bones were obtained. Coronal and sagittal reformats were generated. Radiation dose: Total exam DLP = 791.2 mGy-cm. This CT exam was performed using one or more of the following dose reduction techniques: Automated exposure control, adjustment of the mA and/or kV according to patient size, and/or use of iterative reconstruction technique. FINDINGS: NASAL BONES: Unremarkable. ORBITS: Unremarkable. PARANASAL SINUSES/ MASTOIDS: Moderate mucosal thickening noted at the right maxillary and ethmoid sinuses. Mild mucosal thickening of the sphenoid left maxillary sinuses is also noted. MAXILLA: Unremarkable. MANDIBLE/ TEMPOROMANDIBULAR JOINTS: Unremarkable. SKULL BASE: Unremarkable. TEMPORAL BONES: Middle ears and mastoid grossly unremarkable. OTHER FINDINGS: There is a skin thickening and subcutaneous soft tissue swelling and stranding at the right facial region likely due to infection/ inflammatory process. No evidence of discrete abscess formation. Mild thickening of the adjacent platysmas muscle is also noted. IMPRESSION: Skin and subcutaneous inflammatory/ infectious process at the right facial region without evidence of discrete abscess formation. [id number] sinuses mucosal disease more prominent at the right maxillary and ethmoid sinuses.
--- NOTE | 2017-02-09 18:56 | CP.PCM.PN ---
Subjective - Date & Time of Evaluation Date of Evaluation: 02/09/17 Time of Evaluation: 13:20 - Subjective Subjective: clinically same Objective - Vital Signs/Intake and Output Vital Signs (last 24 hours): Temp Pulse Resp BP Pulse Ox 97.3 F L 76 20 140/80 98 02/09/17 15:13 02/09/17 15:13 02/09/17 15:13 02/09/17 15:13 02/09/17 15:13 Intake and Output: 02/09/17 02/09/17 06:59 18:59 Intake Total 835 Balance 835 - Medications Medications: Current Medications Acetaminophen (Tylenol 325mg Tab) 650 mg PO Q6 PRN PRN Reason: Headache Last Admin: 02/09/17 09:36 Dose: 650 mg Benztropine Mesylate (Cogentin) 2 mg PO DAILY [facility] Last Admin: 02/09/17 09:34 Dose: 2 mg Calcium/Vitamin D (Oyster Shell Calcium/Vitamin D 500 Mg-200 Iu) 1 tab PO DAILY [facility] Last Admin: 02/09/17 09:51 Dose: 1 tab Chlordiazepoxide (Librium) 25 mg PO Q8 PRN PRN Reason: Agitation Clopidogrel Bisulfate (Plavix) 75 mg PO DAILY [facility] Last Admin: 02/09/17 09:35 Dose: 75 mg Enoxaparin Sodium (Lovenox) 40 mg SC DAILY [facility] Last Admin: 02/09/17 09:44 Dose: 40 mg Folic Acid (Folic Acid) 1 mg PO DAILY [facility] Last Admin: 02/09/17 09:35 Dose: 1 mg Gabapentin (Neurontin) 300 mg PO TID [facility] Last Admin: 02/09/17 14:22 Dose: Not Given Sodium Chloride (Sodium Chloride 0.9%) 1,000 mls @ 75 mls/hr IV .[id number] [facility] Last Admin: 02/09/17 09:42 Dose: 75 mls/hr Piperacillin Sod/Tazobactam (Sod 3.375 gm/ Sodium Chloride) 100 mls @ 200 mls/ hr IVPB Q8H [facility] Last Admin: 02/09/17 09:38 Dose: 200 mls/hr Insulin Aspart (Novolog) 12 unit SC AC [facility] Last Admin: 02/09/17 16:30 Dose: Not Given Insulin Aspart (Novolog) 0 unit SC ACHS [facility] PRN Reason: Protocol Last Admin: 02/09/17 16:46 Dose: Not Given Insulin Glargine (Lantus) 30 unit SC HS [facility] Ketorolac Tromethamine (Toradol) 30 mg IVP Q6 PRN Stop: 02/10/17 10:00 Lisinopril (Zestril) 40 mg PO DAILY [facility] Last Admin: 02/09/17 09:34 Dose: 40 mg Multivitamins (Hexavitamin) 1 tab PO DAILY [facility] Last Admin: 02/09/17 09:35 Dose: 1 tab Olanzapine (Zyprexa) 10 mg PO DAILY [facility] Last Admin: 02/09/17 09:51 Dose: 10 mg Pantoprazole Sodium (Protonix Ec Tab) 40 mg PO DAILY [facility] Last Admin: 02/09/17 09:35 Dose: 40 mg Phenytoin Sodium (Dilantin) 100 mg PO TID [facility] Last Admin: 02/09/17 14:23 Dose: 100 mg Thiamine HCl (Vitamin B1 Tab) 100 mg PO DAILY [facility] Last Admin: 02/09/17 09:51 Dose: 100 mg - Constitutional Appears: Well - Head Exam Head Exam: ATRAUMATIC, NORMAL INSPECTION, NORMOCEPHALIC - Eye Exam Eye Exam: EOMI, Normal appearance, PERRL Pupil Exam: NORMAL ACCOMODATION, PERRL - ENT Exam ENT Exam: Mucous Membranes Moist, Normal Exam - Neck Exam Neck Exam: Full ROM, Normal Inspection. absent: Lymphadenopathy - Respiratory Exam Respiratory Exam: Decreased Breath Sounds - Cardiovascular Exam Cardiovascular Exam: REGULAR RHYTHM, +S1, +S2 - GI/Abdominal Exam GI & Abdominal Exam: Soft, Diminished Bowel Sounds - Rectal Exam Rectal Exam: Deferred Assessment and Plan (1) Alcohol abuse Status: Acute (2) Alcohol dependence Status: Acute (3) Alcohol intoxication Status: Acute (4) Altered mental status Status: Acute (5) Bipolar disorder Status: Acute (6) Diabetes mellitus Status: Acute (7) Dysuria Status: Acute (8) Exacerbation of chronic back pain Status: Acute (9) HTN (hypertension) Status: Acute (10) Hyperglycemia Status: Acute (11) Hypoglycemia Status: Acute (12) Prophylactic measure Status: Acute (13) Seizure disorder Status: Acute (14) Slurred speech Status: Acute (15) UTI (urinary tract infection) Status: Acute - Assessment and Plan (Free Text) Plan: iv fluid thiamine folic acid f/u psych
[2017-02-09] MEDS: (Lantus) Insulin Glargine, Recombinant SC SCH (21:54)
[2017-02-10] MEDS: Piperacillin/Tazobact 3.375 GM in Sodium Chloride 100 ML IVPB SCH ×3 (01:14→17:25)
[2017-02-10 08:04] LABS: CHLORIDE 106 mmol/L (98-107); POTASSIUM 4.5 mmol/L (3.6-5.2); SODIUM 139 mmol/L (132-148)
[2017-02-10 08:05] LABS: BILIRUBIN,TOTAL 0.1 mg/dL (0.2-1.3); GFR AFRICAN-AMERICAN > 60
[2017-02-10 08:06] LABS: ALB/GLOB RATIO 1.1 (1.0-2.1); ALKALINE PHOSPHATASE 67 U/L (38-126); ALT/SGPT 22 U/L (9-52); AST/SGOT 21 U/L (14-36); BLOOD UREA NITROGEN 21 mg/dL (7-17); CALCIUM 8.3 mg/dl (8.6-10.4); CARBON DIOXIDE 27 mmol/L (22-30); CHOLESTEROL 167 mg/dL (0-199); GLUCOSE,RANDOM 186 mg/dL (65-105); TOTAL PROTEIN 6.3 g/dL (6.3-8.3)
[2017-02-10] MEDS: (Novolog) Insulin Aspart, Recombinant 100 u/ml 10 ml vial SC SCH ×6 (08:25→17:26)
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
[2017-02-10] MEDS: Enoxaparin 40 mg Syringe SC SCH (09:14)
[2017-02-10] MEDS: Multiple Vitamins Tab PO SCH (09:14)
[2017-02-10] MEDS: Pantoprazole 40 mg EC Tab PO SCH (09:40)
[2017-02-10] MEDS: Calcium-Vit D 500 mg-200 Units Tab UD PO SCH (09:40)
[2017-02-10] MEDS: Sodium Chloride 0.9% 1,000 ML IV SCH ×2 (12:00→13:31)
--- NOTE | 2017-02-10 12:33 | VASCLAB ---
PROCEDURE: HISTORY: stenosis COMPARISON: None available. TECHNIQUE: Grayscale and duplex Doppler evaluation of the cervical carotid and vertebral arteries were performed. The common carotid, carotid bifurcations and cervical Internal Carotid Artery (ICA) and proximal External Carotid Artery (ECA) were evaluated. The vertebral arteries were evaluated for gross patency and flow direction. Report prepared by Lourdes Recio RDCS, S FINDINGS: RIGHT CAROTID ARTERIES: 1. Common Carotid Artery: No significant focal plaque formation of the right common carotid artery. Maximum Peak Systolic velocity: 61 cm/sec: End-diastolic velocity 14 cm/sec. 2. Carotid Bifurcation: Calcific plaque formation. Maximum Peak Systolic velocity: 58 cm/sec: End-diastolic velocity 18 cm/sec. 3. Internal Carotid Artery: Plaque description: 3.1. Proximal Segment: Peak systolic velocity 53 cm/sec: End-diastolic velocity 18 cm/sec - % stenosis 3.2. Middle Segment: Peak systolic velocity 56 cm/sec: End-diastolic velocity 15 cm/sec - % stenosis 3.3. Distal Segment: Peak systolic velocity 56 cm/sec: End-diastolic velocity 20 cm/sec - % stenosis 4. External Carotid Artery: No significant focal plaque formation. Peak systolic velocity 123 cm/sec 5. ICA/CCA Ratio: 0.9 LEFT CAROTID ARTERIES: 1. Common Carotid Artery: No significant focal plaque formation of the left common carotid artery. Maximum Peak Systolic velocity: 100 cm/sec: End-diastolic velocity 25 cm/sec. 2. Carotid Bifurcation: Calcific plaque formation. Maximum Peak Systolic velocity: 53 cm/sec: End-diastolic velocity 13 cm/sec. 3. Internal Carotid Artery: Plaque description: 3.1. Proximal Segment: Peak systolic velocity 71 cm/sec: End-diastolic velocity 21 cm/sec - % stenosis 3.2. Middle Segment: Peak systolic velocity 66 cm/sec: End-diastolic velocity 24 cm/sec - % stenosis 3.3. Distal Segment: Peak systolic velocity 63 cm/sec: End-diastolic velocity 23 cm/sec - % stenosis 4. External Carotid Artery: No significant focal plaque formation. Peak systolic velocity 111 cm/sec 5. ICA/CCA Ratio: 0.8 VERTEBRAL ARTERIES: 1. Right Vertebral Artery: The right vertebral artery flow direction is antegrade. 2. Left Vertebral Artery: The left vertebral artery flow direction is antegrade. OTHER FINDINGS: 1. Right Brachial Blood pressure: 118 mmHg. 2. Left Brachial Blood pressure: 122 mmHg. IMPRESSION: RIGHT: Duplex scan does not suggest hemodynamically significant stenosis of the right extracranial carotid arteries. LEFT: Duplex scan does not suggest hemodynamically significant stenosis of the left extracranial carotid arteries.
--- NOTE | 2017-02-10 16:28 | PN ---
DATE: 02/10/2017 LOCATION: Room 663 This is a 56-year-old female with recent uncontrolled type 2 insulin-requiring diabetes, presenting h ere with marked hyperglycemic accelerations on the background of chronic alcoholism and recent alcoho lic intoxication and is now being followed closely for metabolic management. Her glycemic levels are fluctuating, but much improved at this time and the latest glucose levels have ranged from 144-234 m g/dL. Her hemoglobin A1c is 9.2%, which is elevated and indicative of suboptimal metabolic control o f her diabetic condition. Her latest chemistries showed a BUN of 21, sodium 139, potassium 4.5, chlo ride 106, CO2 27, creatinine 0.7, glucose 186 as noted. Her lipase level is 99. Her TSH is 3.25. ASSESSMENT: This is a 56-year-old female with recent hyperglycemic accelerations related to suboptim al therapeutic regimen even prior to this admission. So she clearly has uncontrolled type 2 insulin- requiring diabetes as noted thereof. PLAN OF MANAGEMENT: Discussed with the patient and staff. We will start her on a basal and bolus in sulin regimen to allow for dose equilibration and keep her on the Lantus given as 30 units subQ at be dtime daily as ordered. We will continue the NovoLog given as 12 units subQ t.i.d. before meals as o rdered. We will continue the low-dose correction scale using NovoLog insulin as given. We will titr ate incrementally as indicated to optimize metabolic control. We will also reinforce diabetic educat ion and dietary instructions at the time of this admission and consult our nurse educator, Ms. Jonathon Perdomo regarding the aforementioned and we will also continue the vigorous IV hydration as ordere d to replenish the lost fluid and electrolytes as noted. We will obtain serial chemistries and suppl ement accordingly as needed. We will follow. Lupe Eagle MD cc: [id number] TT: 02/10/2017 16:28:09 Confirmation # [id number] Dictation # [id number] an
--- NOTE | 2017-02-10 17:10 | CP.PCM.PN ---
Subjective - Date & Time of Evaluation Date of Evaluation: 02/10/17 Time of Evaluation: 12:20 - Subjective Subjective: feels better alert Objective - Vital Signs/Intake and Output Vital Signs (last 24 hours): Temp Pulse Resp BP Pulse Ox 97.3 F L 79 20 145/82 95 02/10/17 08:29 02/10/17 12:30 02/10/17 08:29 02/10/17 09:40 02/10/17 08:29 Intake and Output: 02/10/17 02/10/17 06:59 18:59 Intake Total 1470 1025 Output Total 400 Balance 1070 1025 - Medications Medications: Current Medications Acetaminophen (Tylenol 325mg Tab) 650 mg PO Q6 PRN PRN Reason: Headache Last Admin: 02/10/17 05:14 Dose: 650 mg Benztropine Mesylate (Cogentin) 2 mg PO DAILY [facility] Last Admin: 02/10/17 09:14 Dose: 2 mg Calcium/Vitamin D (Oyster Shell Calcium/Vitamin D 500 Mg-200 Iu) 1 tab PO DAILY [facility] Last Admin: 02/10/17 09:40 Dose: 1 tab Chlordiazepoxide (Librium) 25 mg PO Q8 PRN PRN Reason: Agitation Last Admin: 02/10/17 06:43 Dose: 25 mg Clopidogrel Bisulfate (Plavix) 75 mg PO DAILY [facility] Last Admin: 02/10/17 09:40 Dose: 75 mg Enoxaparin Sodium (Lovenox) 40 mg SC DAILY [facility] Last Admin: 02/10/17 09:14 Dose: 40 mg Folic Acid (Folic Acid) 1 mg PO DAILY [facility] Last Admin: 02/10/17 09:14 Dose: 1 mg Gabapentin (Neurontin) 300 mg PO TID [facility] Last Admin: 02/10/17 13:36 Dose: 300 mg Sodium Chloride (Sodium Chloride 0.9%) 1,000 mls @ 75 mls/hr IV .[id number] [facility] Last Admin: 02/10/17 13:31 Dose: Not Given Piperacillin Sod/Tazobactam (Sod 3.375 gm/ Sodium Chloride) 100 mls @ 200 mls/ hr IVPB Q8H [facility] Last Admin: 02/10/17 09:18 Dose: 200 mls/hr Insulin Aspart (Novolog) 12 unit SC [facility] Last Admin: 02/10/17 12:47 Dose: 12 unit Insulin Aspart (Novolog) 0 unit SC ACHS [facility] PRN Reason: Protocol Last Admin: 02/10/17 12:30 Dose: Not Given Insulin Glargine (Lantus) 30 unit SC HS [facility] Last Admin: 02/09/17 21:54 Dose: 30 units Lisinopril (Zestril) 40 mg PO DAILY [facility] Last Admin: 02/10/17 09:40 Dose: 40 mg Multivitamins (Hexavitamin) 1 tab PO DAILY [facility] Last Admin: 02/10/17 09:14 Dose: 1 tab Olanzapine (Zyprexa) 10 mg PO DAILY [facility] Last Admin: 02/10/17 09:15 Dose: 10 mg Pantoprazole Sodium (Protonix Ec Tab) 40 mg PO DAILY [facility] Last Admin: 02/10/17 09:40 Dose: 40 mg Phenytoin Sodium (Dilantin) 100 mg PO TID [facility] Last Admin: 02/10/17 13:36 Dose: 100 mg Thiamine HCl (Vitamin B1 Tab) 100 mg PO DAILY [facility] Last Admin: 02/10/17 09:40 Dose: 100 mg - Labs Labs: 02/10/17 07:44 - Constitutional Appears: Well - Head Exam Head Exam: ATRAUMATIC, NORMAL INSPECTION, NORMOCEPHALIC - Eye Exam Eye Exam: EOMI, Normal appearance, PERRL Pupil Exam: NORMAL ACCOMODATION, PERRL - ENT Exam ENT Exam: Mucous Membranes Moist, Normal Exam - Neck Exam Neck Exam: Full ROM, Normal Inspection. absent: Lymphadenopathy - Respiratory Exam Respiratory Exam: Decreased Breath Sounds - Cardiovascular Exam Cardiovascular Exam: REGULAR RHYTHM, +S1, +S2 - GI/Abdominal Exam GI & Abdominal Exam: Soft, Diminished Bowel Sounds - Rectal Exam Rectal Exam: Deferred Assessment and Plan (1) Alcohol abuse Status: Acute (2) Alcohol dependence Status: Acute (3) Alcohol intoxication Status: Acute (4) Altered mental status Status: Acute (5) Bipolar disorder Status: Acute (6) Diabetes mellitus Status: Acute (7) Dysuria Status: Acute (8) Exacerbation of chronic back pain Status: Acute (9) HTN (hypertension) Status: Acute (10) Hyperglycemia Status: Acute (11) Hypoglycemia Status: Acute (12) Prophylactic measure Status: Acute (13) Seizure disorder Status: Acute (14) Slurred speech Status: Acute (15) UTI (urinary tract infection) Status: Acute - Assessment and Plan (Free Text) Plan: f/u psych ivy. Mx as ordered
[2017-02-10] MEDS: (Lantus) Insulin Glargine, Recombinant SC SCH (21:19)
--- NOTE | 2017-02-10 23:23 | PCM.PYCHPN ---
Psychiatric Progress Note - Psychiatric Progress Note Patient seen today, length of contact: 16 min Patient Chief Complaint: "I'm getting better" Problems Identified/Issues Discussed: The pt is seen, chart reviewed. She is known to the music writer from detox admission recently. She seems to be at baseline; odd, periodically depressed, always anxious and chronically hears voices "off an on" Denied SI and HI "voices are better" she said Support given Medication Change: No Medical Record Reviewed: Yes Mental Status Examination - Cognitive Function Orientation: Person, Place, Situation, Time Memory: Impaired Attention: Poor Concentration: Poor Association: WNL Fund of Knowledge: Poor - Mood Mood: Depressed, Anxious - Affect Affect: Constricted, Depressed - Speech Speech: Slurred - Formal Thought Process Formal Thought Process: Paranoia, Loosening of associations - Suicidal Ideation Suicidal Ideation: No - Homicidal Ideation Homicidal Ideation: No Goal/Treatment Plan - Goal/Treatment Plan Need for Continued Stay: Other (medical) Progress Toward Problem(s) and Goals/Treatment Plan: Continue meds Support and psychoed [place] for continued abstinence Will sign off soon
[2017-02-11] MEDS: Sodium Chloride 0.9% 1,000 ML IV SCH ×3 (00:30→14:23)
[2017-02-11] MEDS: Piperacillin/Tazobact 3.375 GM in Sodium Chloride 100 ML IVPB SCH ×3 (01:13→17:45)
[2017-02-11 06:29] LABS: BASO # 0.1 K/uL (0.0-0.2); BASO % 0.9 % (0.0-2.0); EOS # 0.3 K/uL (0.0-0.7); EOS % 4.2 % (0.0-4.0); HEMATOCRIT 32.8 % (34.0-47.0); LYMPH # 2.1 K/uL (1.0-4.3); LYMPH % 33.6 % (20.0-40.0); MEAN CELL VOLUME 95.4 fL (81.0-99.0); MEAN CORPUSCULAR HEMOGLOBIN 30.8 pg (27.0-31.0); MEAN CORPUSCULAR HGB CONC 32.2 g/dL (33.0-37.0); MEAN PLATELET VOLUME 9.6 fL (7.2-11.7); MONO # 0.7 K/uL (0.0-0.8); MONO % 10.7 % (0.0-10.0); RED CELL DISTRIBUTION WIDTH 13.5 % (11.5-14.5); WHITE BLOOD COUNT 6.3 K/uL (4.8-10.8)
[2017-02-11 06:39] LABS: CHLORIDE 104 mmol/L (98-107); SODIUM 140 mmol/L (132-148)
[2017-02-11 06:40] LABS: POTASSIUM 4.6 mmol/L (3.6-5.2)
[2017-02-11 06:42] LABS: BLOOD UREA NITROGEN 15 mg/dL (7-17); CARBON DIOXIDE 29 mmol/L (22-30); GFR AFRICAN-AMERICAN > 60; GLUCOSE,RANDOM 150 mg/dL (65-105)
[2017-02-11 06:43] LABS: CALCIUM 8.2 mg/dl (8.6-10.4)
[2017-02-11] MEDS: (Novolog) Insulin Aspart, Recombinant 100 u/ml 10 ml vial SC SCH ×8 (08:12→22:05)
[2017-02-11] MEDS: Enoxaparin 40 mg Syringe SC SCH (11:00)
[2017-02-11] MEDS: Pantoprazole 40 mg EC Tab PO SCH (11:00)
[2017-02-11] MEDS: Calcium-Vit D 500 mg-200 Units Tab UD PO SCH (11:00)
[2017-02-11] MEDS: Multiple Vitamins Tab PO SCH (11:00)
--- NOTE | 2017-02-11 14:40 | CP.PCM.PN ---
Subjective - Date & Time of Evaluation Date of Evaluation: 02/11/17 Time of Evaluation: 12:00 - Subjective Subjective: clinically same Objective - Vital Signs/Intake and Output Vital Signs (last 24 hours): Temp Pulse Resp BP Pulse Ox 98.6 F 70 20 154/77 H 99 02/11/17 08:00 02/11/17 11:00 02/11/17 08:00 02/11/17 11:00 02/11/17 08:00 Intake and Output: 02/11/17 02/11/17 06:59 18:59 Intake Total 1020 Output Total 500 Balance 520 - Medications Medications: Current Medications Acetaminophen (Tylenol 325mg Tab) 650 mg PO Q6 PRN PRN Reason: Headache Last Admin: 02/11/17 06:45 Dose: 650 mg Benztropine Mesylate (Cogentin) 2 mg PO DAILY [facility] Last Admin: 02/11/17 11:00 Dose: 2 mg Calcium/Vitamin D (Oyster Shell Calcium/Vitamin D 500 Mg-200 Iu) 1 tab PO DAILY [facility] Last Admin: 02/11/17 11:00 Dose: 1 tab Chlordiazepoxide (Librium) 25 mg PO Q8 PRN PRN Reason: Agitation Last Admin: 02/10/17 06:43 Dose: 25 mg Clopidogrel Bisulfate (Plavix) 75 mg PO DAILY [facility] Last Admin: 02/11/17 11:00 Dose: 75 mg Enoxaparin Sodium (Lovenox) 40 mg SC DAILY [facility] Last Admin: 02/11/17 11:00 Dose: 40 mg Folic Acid (Folic Acid) 1 mg PO DAILY [facility] Last Admin: 02/11/17 11:00 Dose: 1 mg Gabapentin (Neurontin) 300 mg PO TID [facility] Last Admin: 02/11/17 14:21 Dose: 300 mg Sodium Chloride (Sodium Chloride 0.9%) 1,000 mls @ 75 mls/hr IV .[id number] [facility] Last Admin: 02/11/17 14:23 Dose: Not Given Piperacillin Sod/Tazobactam (Sod 3.375 gm/ Sodium Chloride) 100 mls @ 200 mls/ hr IVPB Q8H [facility] Last Admin: 02/11/17 08:36 Dose: 200 mls/hr Insulin Aspart (Novolog) 0 unit SC ACHS [facility] PRN Reason: Protocol Last Admin: 02/11/17 12:31 Dose: Not Given Insulin Aspart (Novolog) 6 unit SC AC [facility] Insulin Glargine (Lantus) 30 unit SC HS [facility] Last Admin: 02/10/17 21:19 Dose: 30 units Lisinopril (Zestril) 40 mg PO DAILY [facility] Last Admin: 02/11/17 11:00 Dose: 40 mg Multivitamins (Hexavitamin) 1 tab PO DAILY [facility] Last Admin: 02/11/17 11:00 Dose: 1 tab Olanzapine (Zyprexa) 10 mg PO DAILY [facility] Last Admin: 02/11/17 11:00 Dose: 10 mg Pantoprazole Sodium (Protonix Ec Tab) 40 mg PO DAILY [facility] Last Admin: 02/11/17 11:00 Dose: 40 mg Phenytoin Sodium (Dilantin) 100 mg PO TID [facility] Last Admin: 02/11/17 14:21 Dose: 100 mg Thiamine HCl (Vitamin B1 Tab) 100 mg PO DAILY [facility] Last Admin: 02/11/17 11:00 Dose: 100 mg - Labs Labs: 02/11/17 06:21 02/11/17 06:21 - Constitutional Appears: Well - Head Exam Head Exam: ATRAUMATIC, NORMAL INSPECTION, NORMOCEPHALIC - Eye Exam Eye Exam: EOMI, Normal appearance, PERRL Pupil Exam: NORMAL ACCOMODATION, PERRL - ENT Exam ENT Exam: Mucous Membranes Moist, Normal Exam - Neck Exam Neck Exam: Full ROM, Normal Inspection. absent: Lymphadenopathy - Respiratory Exam Respiratory Exam: Decreased Breath Sounds - Cardiovascular Exam Cardiovascular Exam: REGULAR RHYTHM, +S1, +S2 - GI/Abdominal Exam GI & Abdominal Exam: Soft, Diminished Bowel Sounds - Rectal Exam Rectal Exam: Deferred Assessment and Plan (1) Alcohol abuse Status: Acute (2) Alcohol dependence Status: Acute (3) Alcohol intoxication Status: Acute (4) Altered mental status Status: Acute (5) Bipolar disorder Status: Acute (6) Diabetes mellitus Status: Acute (7) Dysuria Status: Acute (8) Exacerbation of chronic back pain Status: Acute (9) HTN (hypertension) Status: Acute (10) Hyperglycemia Status: Acute (11) Hypoglycemia Status: Acute (12) Prophylactic measure Status: Acute (13) Seizure disorder Status: Acute (14) Slurred speech Status: Acute (15) UTI (urinary tract infection) Status: Acute - Assessment and Plan (Free Text) Plan: f/u psych ivy. meds as ordered
--- NOTE | 2017-02-11 17:52 | PCM.PYCHPN ---
Psychiatric Progress Note - Psychiatric Progress Note Patient seen today, length of contact: 20 min Patient Chief Complaint: "I'm much better" Problems Identified/Issues Discussed: The pt is seen, chart reviewed, case discussed. Pt mood is positive today. Pt continues to hear voices today. She states the voices say, "your father is leaving." Pt denies suicidal thoughts today, but admits to them in the past. Pt states she continues to feel depressed. After care discussed, support and psychoeducation given. Medical Problems: Diabetes, hypertension, hypercholesterolemia, seizure disorder, asthma, hepatitis C Medication Change: No Medical Record Reviewed: Yes Mental Status Examination - Cognitive Function Orientation: Person, Place, Situation, Time Memory: Intact Attention: WNL Concentration: WNL Association: Loose Fund of Knowledge: WNL - Mood Mood: Depressed, Anxious - Affect Affect: Broad - Speech Speech: Appropriate - Formal Thought Process Formal Thought Process: Hallucinations, Paranoia, Loosening of associations - Suicidal Ideation Suicidal Ideation: No - Homicidal Ideation Homicidal Ideation: No Goal/Treatment Plan - Goal/Treatment Plan Need for Continued Stay: Severe depression anxiety, Discharge may exacerbated symptoms, Other (medical) Progress Toward Problem(s) and Goals/Treatment Plan: Continue meds Support and Pyschoeducation [place] for continued abstinence Will sign off soon - Smoking Cessation Smoking Cessation Initiated: No
[2017-02-11] MEDS: (Lantus) Insulin Glargine, Recombinant SC SCH (22:18)
[2017-02-12] MEDS: Piperacillin/Tazobact 3.375 GM in Sodium Chloride 100 ML IVPB SCH ×2 (00:31→10:00)
[2017-02-12] MEDS: (Novolog) Insulin Aspart, Recombinant 100 u/ml 10 ml vial SC SCH ×3 (07:59→12:46)
[2017-02-12] MEDS: Multiple Vitamins Tab PO SCH (10:14)
[2017-02-12] MEDS: Calcium-Vit D 500 mg-200 Units Tab UD PO SCH (10:14)
[2017-02-12] MEDS: Pantoprazole 40 mg EC Tab PO SCH (10:15)
[2017-02-12] MEDS: Enoxaparin 40 mg Syringe SC SCH (10:25)
--- NOTE | 2017-02-12 10:48 | PN ---
DATE: 02/12/2017 ROOM: 663 SUBJECTIVE: This is a 56-year-old female with recent uncontrolled type 2 insulin-requiring diabetes, presenting here with marked hyperglycemic accelerations and concomitant alcoholic intoxication on th e background of chronic alcoholism. Her glycemic levels are fluctuating because also of the variabil ity of her oral intake as per the nursing staff. She had marked hyperglycemic levels overnight with glucose values of 247 to 277 and 475 last night. Early this morning her glucose brandon to 444 at 2 a.m . with a repeat glucose of 261 at breakfast time. Her latest chemistries include a BUN of 15, sodium 140, potassium 4.6, chloride 104, CO2 of 29, glucose 150, and creatinine 0.7. At this time, we will modify once again her labile insulin regimen and increase the NovoLog to 10 units subQ t.i.d. before meals to start at lunchtime today as ordered. We increased the Lantus given as basal insulin to 34 units subQ at bedtime daily to start tonight. We will continue the low-dose correction scale using N ovoLog insulin as ordered. We will titrate incrementally as indicated to optimize metabolic control. We will obtain serial chemistries and supplement accordingly as needed. We will follow and advise accordingly. Lupe Eagle MD cc: [id number] TT: 02/12/2017 10:47:40 Confirmation # [id number] Dictation # [id number] aniyah
[2017-02-12] MEDS ORDERED: (Novolog) Insulin Aspart, Recombinant 100 u/ml 10 ml vial SC SCH (11:30)
--- NOTE | 2017-02-12 14:06 | CP.PCM.PN ---
Subjective - Date & Time of Evaluation Date of Evaluation: 02/12/17 Time of Evaluation: 12:40 - Subjective Subjective: clinically same Objective - Vital Signs/Intake and Output Vital Signs (last 24 hours): Temp Pulse Resp BP Pulse Ox 98 F 82 18 163/86 H 98 02/12/17 07:00 02/12/17 10:12 02/12/17 07:00 02/12/17 10:12 02/12/17 07:00 Intake and Output: 02/12/17 02/12/17 06:59 18:59 Intake Total 1570 Balance 1570 - Medications Medications: Current Medications Acetaminophen (Tylenol 325mg Tab) 650 mg PO Q6 PRN PRN Reason: Headache Last Admin: 02/11/17 18:16 Dose: 650 mg Benztropine Mesylate (Cogentin) 2 mg PO DAILY ON LICENSE OF [facility] Last Admin: 02/12/17 10:14 Dose: 2 mg Calcium/Vitamin D (Oyster Shell Calcium/Vitamin D 500 Mg-200 Iu) 1 tab PO DAILY ON LICENSE OF [facility] Last Admin: 02/12/17 10:14 Dose: 1 tab Chlordiazepoxide (Librium) 25 mg PO Q8 PRN PRN Reason: Agitation Last Admin: 02/10/17 06:43 Dose: 25 mg Clopidogrel Bisulfate (Plavix) 75 mg PO DAILY ON LICENSE OF [facility] Last Admin: 02/12/17 10:15 Dose: 75 mg Enoxaparin Sodium (Lovenox) 40 mg SC DAILY ON LICENSE OF [facility] Last Admin: 02/12/17 10:25 Dose: 40 mg Folic Acid (Folic Acid) 1 mg PO DAILY ON LICENSE OF [facility] Last Admin: 02/12/17 10:14 Dose: 1 mg Gabapentin (Neurontin) 300 mg PO TID ON LICENSE OF [facility] Last Admin: 02/12/17 13:54 Dose: 300 mg Piperacillin Sod/Tazobactam (Sod 3.375 gm/ Sodium Chloride) 100 mls @ 200 mls/ hr IVPB Q8H ON LICENSE OF [facility] Last Admin: 02/12/17 10:00 Dose: 200 mls/hr Insulin Aspart (Novolog) 0 unit SC ACHS ON LICENSE OF [facility] PRN Reason: Protocol Last Admin: 02/12/17 12:46 Dose: Not Given Insulin Aspart (Novolog) 10 unit SC AC ON LICENSE OF [facility] Last Admin: 02/12/17 12:47 Dose: 10 unit Insulin Glargine (Lantus) 34 unit SC HS ON LICENSE OF [facility] Lisinopril (Zestril) 40 mg PO DAILY ON [facility] OF [facility] Last Admin: 02/12/17 10:14 Dose: 40 mg Multivitamins (Hexavitamin) 1 tab PO DAILY ON LICENSE OF [facility] Last Admin: 02/12/17 10:14 Dose: 1 tab Olanzapine (Zyprexa) 10 mg PO DAILY ON [facility] OF [facility] Last Admin: 02/12/17 10:15 Dose: 10 mg Pantoprazole Sodium (Protonix Ec Tab) 40 mg PO DAILY ON [facility] OF [facility] Last Admin: 02/12/17 10:15 Dose: 40 mg Phenytoin Sodium (Dilantin) 100 mg PO TID ON LICENSE OF [facility] Last Admin: 02/12/17 13:54 Dose: 100 mg Thiamine HCl (Vitamin B1 Tab) 100 mg PO DAILY ON LICENSE OF [facility] Last Admin: 02/12/17 10:14 Dose: 100 mg - Labs Labs: 02/11/17 06:21 02/11/17 06:21 - Constitutional Appears: Well - Head Exam Head Exam: ATRAUMATIC, NORMAL INSPECTION, NORMOCEPHALIC - Eye Exam Eye Exam: EOMI, Normal appearance, PERRL Pupil Exam: NORMAL ACCOMODATION, PERRL - ENT Exam ENT Exam: Mucous Membranes Moist, Normal Exam - Neck Exam Neck Exam: Full ROM, Normal Inspection. absent: Lymphadenopathy - Respiratory Exam Respiratory Exam: Decreased Breath Sounds - Cardiovascular Exam Cardiovascular Exam: REGULAR RHYTHM, +S1, +S2 - GI/Abdominal Exam GI & Abdominal Exam: Soft, Diminished Bowel Sounds - Rectal Exam Rectal Exam: Deferred Assessment and Plan - Assessment and Plan (Free Text) Plan: pt. can be discharged home today with 5 days of pen vk f/u with PMD Dr. Orourke in 3- 5 day
--- NOTE | 2017-02-12 14:24 | CP.PCM.PN ---
Subjective - Date & Time of Evaluation Date of Evaluation: 02/12/17 Time of Evaluation: 13:00 - Subjective Subjective: BR[employer]ER NOTES Pt seen today with Dr. Salas melchor, alert, ox3 , calm family at bedside as per Dr. Salas melchor pt can be discharged home today with 5 days of pen vk and f/ u with PMD Dr. Orourke in 3- 5 day s Discharge plan discussed with patient and family at bed side Objective - Vital Signs/Intake and Output Vital Signs (last 24 hours): Temp Pulse Resp BP Pulse Ox 98 F 82 18 163/86 H 98 02/12/17 07:00 02/12/17 10:12 02/12/17 07:00 02/12/17 10:12 02/12/17 07:00 Intake and Output: 02/12/17 02/12/17 06:59 18:59 Intake Total 1570 Balance 1570 - Medications Medications: Current Medications Acetaminophen (Tylenol 325mg Tab) 650 mg PO Q6 PRN PRN Reason: Headache Last Admin: 02/11/17 18:16 Dose: 650 mg Benztropine Mesylate (Cogentin) 2 mg PO DAILY [facility] Last Admin: 02/12/17 10:14 Dose: 2 mg Calcium/Vitamin D (Oyster Shell Calcium/Vitamin D 500 Mg-200 Iu) 1 tab PO DAILY [facility] Last Admin: 02/12/17 10:14 Dose: 1 tab Chlordiazepoxide (Librium) 25 mg PO Q8 PRN PRN Reason: Agitation Last Admin: 02/10/17 06:43 Dose: 25 mg Clopidogrel Bisulfate (Plavix) 75 mg PO DAILY [facility] Last Admin: 02/12/17 10:15 Dose: 75 mg Enoxaparin Sodium (Lovenox) 40 mg SC DAILY [facility] Last Admin: 02/12/17 10:25 Dose: 40 mg Folic Acid (Folic Acid) 1 mg PO DAILY [facility] Last Admin: 02/12/17 10:14 Dose: 1 mg Gabapentin (Neurontin) 300 mg PO TID [facility] Last Admin: 02/12/17 13:54 Dose: 300 mg Piperacillin Sod/Tazobactam (Sod 3.375 gm/ Sodium Chloride) 100 mls @ 200 mls/ hr IVPB Q8H [facility] Last Admin: 02/12/17 10:00 Dose: 200 mls/hr Insulin Aspart (Novolog) 0 unit SC ACHS [facility] PRN Reason: Protocol Last Admin: 02/12/17 12:46 Dose: Not Given Insulin Aspart (Novolog) 10 unit SC AC [facility] Last Admin: 02/12/17 12:47 Dose: 10 unit Insulin Glargine (Lantus) 34 unit SC HS [facility] Lisinopril (Zestril) 40 mg PO DAILY [facility] Last Admin: 02/12/17 10:14 Dose: 40 mg Multivitamins (Hexavitamin) 1 tab PO DAILY [facility] Last Admin: 02/12/17 10:14 Dose: 1 tab Olanzapine (Zyprexa) 10 mg PO DAILY [facility] Last Admin: 02/12/17 10:15 Dose: 10 mg Pantoprazole Sodium (Protonix Ec Tab) 40 mg PO DAILY [facility] Last Admin: 02/12/17 10:15 Dose: 40 mg Phenytoin Sodium (Dilantin) 100 mg PO TID [facility] Last Admin: 02/12/17 13:54 Dose: 100 mg Thiamine HCl (Vitamin B1 Tab) 100 mg PO DAILY [facility] Last Admin: 02/12/17 10:14 Dose: 100 mg - Labs Labs: 02/11/17 06:21 02/11/17 06:21
[2017-02-12 14:48] VITALS: BP 138/81; PULSE 77; RESP 20; TEMP 97.4
[2017-02-12] MEDS ORDERED: (Lantus) Insulin Glargine, Recombinant SC SCH (22:00)
[2017-02-13 15:21] VITALS: O2SAT 98
--- NOTE | 2017-02-20 10:38 | EEG ---
DATE: 02/09/2017 This is a resting electroencephalogram of awake and a drowsy adult. During the study, photic stimula tion was performed. Hyperventilation was not performed. The resting electroencephalogram consists of diffuse 30-40 microvolt. Theta activity is noted in smith ateral parietal and occipital leads. This followed with high amplitude 2-3 Hz delta activity seen, w hich is consistent with M2 sleep. During the study, photic stimulation was performed, which did not show any evoked response. IMPRESSION: Abnormal electroencephalogram because of persistent slowing throughout the record sugges tive of bilateral cerebral dysfunction. This is probably secondary to ____ vascular or degenerative process. Please correlate the finding with the neurological and the radiological studies. Harsha Mahmood MD cc: [id number] TT: 02/20/2017 10:38:20 Confirmation # [id number] Dictation # [id number] [email or web address]
--- NOTE | 2017-02-21 08:22 | PN ---
DATE: 02/11/2017 Room 663. This is a [id number] with recent ____ with supervening hyperglycemic accelerations ____ follo w closely for metabolic management ____ oral intake at this time will ____ as noted ____ hypogl ycemia and ____ given Tapazole ____ regular insulin ____ Lupe Eagle MD cc: [id number] TT: 02/11/2017 18:38:38 Confirmation # [id number] Dictation # [id number]
== END 2017-02-12 15:20 | disposition home or self-care (01) | DRG 750 ==
LOC: C.ER 09:34 → C.9E 12:59 → C.6T 14:29
PROVIDERS: ADMIT Internal Medicine Nephrology; ATTEND Internal Medicine Nephrology
DX: F10.231 Alcohol dependence with withdrawal delirium (principal); E11.65 Type 2 diabetes mellitus with hyperglycemia; F33.3 Major depressive disorder, recurrent, severe with psychotic symptoms; E11.42 Type 2 diabetes mellitus with diabetic polyneuropathy; I11.9 Hypertensive heart disease without heart failure; F10.229 Alcohol dependence with intoxication, unspecified; Z79.4 Long term (current) use of insulin; F17.210 Nicotine dependence, cigarettes, uncomplicated; Y90.0 Blood alcohol level of less than 20 mg/100 ml; J45.909 Unspecified asthma, uncomplicated; Z86.711 Personal history of pulmonary embolism; G40.909 Epilepsy, unspecified, not intractable, without status epilepticus; E78.00 Pure hypercholesterolemia, unspecified; Z91.14 Patient's other noncompliance with medication regimen; Z91.11 Patient's noncompliance with dietary regimen; K21.9 Gastro-esophageal reflux disease without esophagitis; M19.90 Unspecified osteoarthritis, unspecified site; Z90.49 Acquired absence of other specified parts of digestive tract; Z98.84 Bariatric surgery status

== ENCOUNTER 2017-03-17 07:40 | Emergency (ER) | payer OTHER ==
[2017-03-17 07:40] VITALS: BMI 27.4
[2017-03-17 07:52] VITALS: TEMP 97.5
--- NOTE | 2017-03-17 08:22 | C.PDOC ---
History Of Present Illness 56 y/o female with Hx of diabetes, bipolar disorder and seizure disorder brought to ED by EMS with complaints of "not feeling herself" and weakness since this morning. Patient states she has not been taking her seizure medications for "couple of days". Last night patient took diabetes medicine and did not eat. This morning her sugar was low. As per family member patient had a seizure activity for about 1 min today and called EMS. Patient was given 1mg Glucagon IM and 1 AMP D50 in the field by EMS. Currently at ED patient has no other complaints. Time Seen by Provider: 03/17/17 08:14 Chief Complaint (Nursing): Altered Mental Status History Per: Patient, EMS Recent Seizure Activity Began: Just Before Arrival Length Of Seizures (Duration): Minutes (1 minute) Past Medical History Reviewed: Historical Data, Nursing Documentation, Vital Signs Vital Signs: Last Vital Signs Temp 97.5 F L 03/17/17 07:50 Pulse 76 03/17/17 11:46 Resp 18 03/17/17 11:46 BP 167/82 H 03/17/17 11:46 Pulse Ox 96 03/17/17 18:21 - Medical History PMH: Anxiety, Arthritis, Back Problems (herniated discs), Bipolar Disorder, Colonic Polyps (2014), Depression, Diabetes (type 2), Hepatitis (C), HTN, Hypercholesterolemia, Schizophrenia, Seizures Surgical History: Cholecystectomy, Endoscopy (2014) - [facility] Procedures DETOXIFICATION SERVICES FOR SUBSTANCE ABUSE TREATMENT (02/03/17) GROUP PSYCHOTHERAPY (02/18/17) INDIV PSYCHOTHERAPY FOR SUBSTANCE ABUSE TREATMENT, SUPPORT (02/03/17) INDIVIDUAL PSYCHOTHERAPY, COGNITIVE-BEHAVIORAL (02/18/17) INDIVIDUAL PSYCHOTHERAPY, SUPPORTIVE (02/03/17) MEDICATION MANAGEMENT (02/03/17) Family History: States: Unknown Family Hx - Social History Hx Tobacco Use: No Hx Alcohol Use: Yes (denies) Hx Substance Use: Yes (denies) - Immunization History Hx Tetanus Toxoid Vaccination: No Hx Influenza Vaccination: No Hx Pneumococcal Vaccination: No Review Of Systems Constitutional: Negative for: Fever, Chills Eyes: Negative for: Vision Change Cardiovascular: Negative for: Chest Pain Respiratory: Negative for: Shortness of Breath Gastrointestinal: Negative for: Nausea, Vomiting, Diarrhea Neurological: Positive for: Seizures. Negative for: Headache, Dizziness Physical Exam - Physical Exam Appears: Non-toxic, No Acute Distress Skin: Normal Color, Warm Head: Atraumatic, Normacephalic, No Tenderness, No Swelling Eye(s): bilateral: Normal Inspection, PERRL, EOMI Nose: Normal Oral Mucosa: Moist Tongue: Normal Appearing, No Bite, No Laceration Lips: Normal Appearing Throat: Normal, No Erythema, No Exudate Neck: Normal ROM Chest: Symmetrical Cardiovascular: Rhythm Regular, No Murmur Respiratory: Normal Breath Sounds, No Rales, No Rhonchi, No Wheezing Extremity: Normal ROM, No Tenderness, No Deformity, No Swelling Neurological/Psych: Oriented x3, Normal Speech, Other (No focal deficits) ED Course And Treatment - Laboratory Results Result Diagrams: 03/17/17 08:52 03/17/17 08:52 Lab Interpretation: No Acute Changes ECG: Interpreted By Me, Viewed By Me ECG Rhythm: Sinus Bradycardia ECG Interpretation: No Acute Changes Rate From EC O2 Sat by Pulse Oximetry: 96 (Room air ) Pulse Ox Interpretation: Normal Medical Decision Making Medical Decision Makin y.o female with seizure d.o who has not taken her meds for few days Plan: Labs, EKG, surveillance monitor Progress: Labs show low phenytoin level, no electrolyte abnormality. Oral meds given Patient remained afebrile alert and oriented in no acute distress. Vital signs stable. Patient stable for discharge and instruct to continue with her medications and to check her glucose and eat prior to taking her diabetic medications. Patient verbalized understanding. Disposition Counseled Patient/Family Regarding: Diagnosis, Need For Followup - Disposition Referrals: Angel Orourke MD [Staff Provider] - Disposition: HOME/ ROUTINE Disposition Time: 12:30 Condition: STABLE Additional Instructions: Continue with your current medications Follow up with your primary medical doctor or clinic in 2-5 days for further evaluation. Return to the emergency department at any time if symptoms persist or worsen. 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 - Scribe Statement The provider has reviewed the documentation as recorded by the Nerissa Contreras All medical record entries made by the Scribe were at my direction and personally dictated by me. I have reviewed the chart and agree that the record accurately reflects my personal performance of the history, physical exam, medical decision making, and the department course for this patient. I have also personally directed, reviewed, and agree with the discharge instructions and disposition.
[2017-03-17 08:57] LABS: BASO # 0.1 K/uL (0.0-0.2); BASO % 0.7 % (0.0-2.0); EOS % 0.3 % (0.0-4.0); HEMATOCRIT 35.2 % (34.0-47.0); LYMPH % 12.4 % (20.0-40.0); MEAN CELL VOLUME 94.8 fL (81.0-99.0); MEAN CORPUSCULAR HEMOGLOBIN 30.7 pg (27.0-31.0); MEAN CORPUSCULAR HGB CONC 32.4 g/dL (33.0-37.0); MEAN PLATELET VOLUME 9.9 fL (7.2-11.7); MONO # 0.3 K/uL (0.0-0.8); MONO % 3.2 % (0.0-10.0); RED CELL DISTRIBUTION WIDTH 14.6 % (11.5-14.5)
[2017-03-17 09:01] LABS: URINE BILIRUBIN NEGATIVE (NEGATIVE); URINE BLOOD NEGATIVE (NEGATIVE); URINE COLOR Yellow (YELLOW); URINE GLUCOSE (UA) 1+ mg/dL (Normal); URINE KETONE NEGATIVE (NEGATIVE); URINE LEUKOCYTE ESTERASE TRACE Leu/uL (Negative); URINE PROTEIN NEGATIVE (NEGATIVE); URINE UROBILINOGEN NORMAL mg/dL (0.2-1.0); WBC URINE 5 /hpf (0-5)
[2017-03-17 09:14] LABS: CHLORIDE 107 mmol/L (98-107); POTASSIUM 4.3 mmol/L (3.6-5.2); SODIUM 141 mmol/L (132-148)
[2017-03-17 09:16] LABS: ALB/GLOB RATIO 1.1 (1.0-2.1); AST/SGOT 34 U/L (14-36); BILIRUBIN,TOTAL 0.5 mg/dL (0.2-1.3); CARBON DIOXIDE 24 mmol/L (22-30); GFR AFRICAN-AMERICAN > 60; TOTAL PROTEIN 7.6 g/dL (6.3-8.3)
[2017-03-17 09:17] LABS: ALCOHOL SERUM < 10 mg/dl (0-10); ALKALINE PHOSPHATASE 95 U/L (38-126); ALT/SGPT 22 U/L (9-52); BLOOD UREA NITROGEN 14 mg/dL (7-17); CALCIUM 8.7 mg/dl (8.6-10.4); GLUCOSE,RANDOM 165 mg/dL (65-105)
--- NOTE | 2017-03-17 10:55 | RAD ---
PROCEDURE: CHEST RADIOGRAPH, 1 VIEW HISTORY: SOB COMPARISON: 02/08/2017 FINDINGS: LUNGS: Bibasilar opacity representing change from prior examination. Possible pneumonia. Followup advised. PLEURA: No pneumothorax or pleural fluid seen. CARDIOVASCULAR: Pulmonary vascular congestion. OSSEOUS STRUCTURES: No significant abnormalities. VISUALIZED UPPER ABDOMEN: Normal. OTHER FINDINGS: None. IMPRESSION: New bibasilar opacity. Infiltrate versus atelectasis. Followup advised. Mild pulmonary vascular congestive change.
[2017-03-17 11:47] VITALS: BP 167/82; PULSE 76; RESP 18
[2017-03-17 18:21] VITALS: O2SAT 96
--- NOTE | 2017-03-23 20:50 | CARD ---
APPROVED REPORT EKG Measurement Heart [id number] <Conclusion> Sinus bradycardia Otherwise normal ECG
== END 2017-03-17 12:38 | disposition home or self-care (01) ==
LOC: C.ER 07:40
DX: G40.909 Epilepsy, unspecified, not intractable, without status epilepticus (principal); E11.649 Type 2 diabetes mellitus with hypoglycemia without coma

== ENCOUNTER 2017-10-28 11:44 | Emergency (ER) | payer MEDICAID, OTHER ==
[2017-10-28 11:46] VITALS: BMI 27.4
--- NOTE | 2017-10-28 13:22 | C.PDOC ---
History Of Present Illness 57 yr old female with PMHx of depression and is on Risperdal, presents to ER for evaluation of insomnia. Patient states she took 2 extra Risperdal tablets today to help her sleep. States afterwards she felt dizzy and sleepy, however she slipped and fell landing on her back and hitting the back of her head. Patient denies SI, HI, hallucinations, LOC, vision changes, chest pain, SOB, nausea, vomiting, weakness or numbness. - HPI Time Seen by Provider: 10/28/17 12:32 Chief Complaint (Nursing): Back Pain History Per: Patient History/Exam Limitations: no limitations Onset/Duration Of Symptoms: Days Past Medical History Reviewed: Historical Data, Nursing Documentation, Vital Signs Vital Signs: Last Vital Signs Temp 98.7 F 10/28/17 16:09 Pulse 74 10/28/17 16:09 Resp 18 10/28/17 16:09 BP 145/74 10/28/17 16:09 Pulse Ox 99 10/28/17 16:09 - Medical History PMH: Anxiety, Arthritis, Back Problems (herniated discs), Bipolar Disorder, Colonic Polyps (2014), Depression, Diabetes (type 2), Hepatitis (C), HTN, Hypercholesterolemia, Migraine, Schizophrenia, Seizures Surgical History: Cholecystectomy, Endoscopy (2014) - [facility] DETOXIFICATION SERVICES FOR SUBSTANCE ABUSE TREATMENT (02/03/17) GROUP PSYCHOTHERAPY (06/09/17) INDIV PSYCHOTHERAPY FOR SUBSTANCE ABUSE TREATMENT, SUPPORT (02/03/17) INDIVIDUAL PSYCHOTHERAPY, COGNITIVE-BEHAVIORAL (02/18/17) INDIVIDUAL PSYCHOTHERAPY, SUPPORTIVE (02/03/17) MEDICATION MANAGEMENT (02/03/17) Family History: States: No Known Family Hx - Social History Hx Tobacco Use: No Hx Alcohol Use: Yes Hx Substance Use: Yes - Immunization History Hx Tetanus Toxoid Vaccination: No Hx Influenza Vaccination: No Hx Pneumococcal Vaccination: No Review Of Systems Except As Marked, All Systems Reviewed And Found Negative. Eyes: Negative for: Vision Change Cardiovascular: Negative for: Chest Pain Respiratory: Negative for: Shortness of Breath Gastrointestinal: Negative for: Nausea, Vomiting Musculoskeletal: Positive for: Back Pain Neurological: Positive for: Other ((+) hit back of head). Negative for: Weakness, Numbness Physical Exam - Physical Exam Appears: Non-toxic, No Acute Distress, Other (bizarre affect) Skin: Warm, Dry, No Rash Head: Normacephalic, Tenderness (to occipital scalp), No Swelling, No Laceration Eye(s): bilateral: Normal Inspection, PERRL, EOMI Oral Mucosa: Moist Neck: Normal, Normal ROM, Supple Respiratory: Normal Breath Sounds, No Rales, No Rhonchi, No Stridor, No Wheezing Gastrointestinal/Abdominal: Normal Exam, Soft, No Tenderness, No Guarding, No Rebound Extremity: Normal ROM, No Swelling Neurological/Psych: Oriented x3, Normal Speech, Normal Motor ED Course And Treatment O2 Sat by Pulse Oximetry: 96 (RA) Pulse Ox Interpretation: Normal - CT Scan/US CT - Head Other Rad Studies (CT/US): Read By Radiologist, Radiology Report Reviewed CT/US Interpretation: PROCEDURE: CT scan brain dated 10/28/2016. HISTORY: Head injury. COMPARISON: Comparison made with CT scan brain dated 02/08/2017. TECHNIQUE: Axial computed tomography images were obtained through the head/ brain without intravenous contrast. Radiation dose: Total exam DLP = 824.19 mGy-cm. This CT exam was performed using one or more of the following dose reduction techniques: Automated exposure control, adjustment of the mA and/or kV according to patient size, and/or use of iterative reconstruction technique. FINDINGS: HEMORRHAGE: No acute parenchymal, subarachnoid or extra-axial hemorrhage. BRAIN: Mild chronic periventricular white matter ischemic changes are felt to be present. There may also be a few scattered lacunar-type infarcts within both basal nuclei. Mild age-appropriate volume loss. VENTRICLES: No evidence of obstructive hydrocephalus. CALVARIUM: Small elliptical shaped sclerotic focus within the right mid anterior parietal region likely representing a small bone island or osteoma. Calvarium otherwise appears unremarkable. PARANASAL SINUSES: Minimal mucosal thickening seen within a few ethmoid air cells not withstanding the aforementioned few collapsed ethmoid air cells subjacent to a lamina papyracea fracture. MASTOID AIR CELLS: Unremarkable as visualized. No inflammatory changes. OTHER FINDINGS : Old short-segment fracture deformity right lamina papyracea with collapse of a few adjacent ethmoid air cells which are partially occupied by a herniated orbital fat. . There also appears to be borderline/mild exophthalmos. IMPRESSION: No acute intracranial hemorrhage. Suspect minimal chronic periventricular white matter ischemic changes and a few tiny bilateral basal nuclei lacunar type infarcts. Mild age-appropriate volume loss. CT - Cervical Spine Other Rad Studies (CT/US): Read By Radiologist, Radiology Report Reviewed CT/US Interpretation: PROCEDURE: CT scan cervical spine dated 10/28/2016. HISTORY: Status post fall with trauma. COMPARISON: No prior study available for comparison however correlation made with prior CT scan maxillofacial skeleton dated 02/09/2017. Which partially image the upper cervical spine. TECHNIQUE: Contiguous helical/transaxial l computed tomography images were obtained of the cervical spine without the use of intravenous contrast. Coronal and sagittal reformatted images were created and reviewed. Radiation dose: Total exam DLP = 421.94 mGy-cm. This CT exam was performed using one or more of the following dose reduction techniques: Automated exposure control, adjustment of the mA and/or kV according to patient size, and/or use of iterative reconstruction technique. Note that this examination is somewhat limited due to crossing streak and beam hardening artifact arising from dental amalgam as well as dense clavicles and shoulder girdles which result in diminution of fine soft tissue detail in the mid to lower cervical region. FINDINGS: VERTEBRAE: The current study reveals no acute compression fractures no retropulsed fragments. Vertebral bodies exhibit normal stature. Slight kyphotic angulation deformity centered at the C5-C6 level with straightening of the cervical spine above and below this level. . The vertebral bodies otherwise exhibit relatively normal alignment. Facets normally aligned. . Note that this study is somewhat. DISCS/SPINAL CANAL/NEURAL FORAMINA: Multilevel degenerative spondylosis. At the C5-C6 level, there is disc space narrowing, cortical endplate irregularity -eburnation with subchondral cystic changes. Small broad-based disc ridge complex contiguous with hypertrophic uncovertebral joints larger on the right than left. The facets are slightly hypertrophic more so on the right side. Changes result in mild flattening of the ventral surface of the thecal sac and spinal cord however the overall central canal appears adequate. Left exit foramen is adequate. Right exit foramen is slightly narrowed. At the C6-C7 level, there is disc space narrowing, endplate irregularity/eburnation and subchondral cystic changes. Small broad-based disc ridge complex contiguous with hypertrophic uncovertebral joints. Small amount of vacuum disc phenomenon present. Changes result in mild canal narrowing and flattening of the ventral surface of the spinal cord. The exit foramina appear marginal to minimally narrowed on the right side and adequate on the left. At the C4-C5 level, there is relatively adequate disc height. Small central and bilateral focal disc protrusion indents the ventral surface of the thecal sac and appears to minimally indent the ventral surface of the cord. Central canal is slightly narrowed at this level. Uncovertebral and facet joints slightly overgrown more so on the right. Left exit foramen is adequate. Right exit foramen is mildly narrowed. At the C3-C4 level, there is also relatively adequate disc height. Small focal central and bilateral disc protrusion also indents the ventral surface of the thecal sac and appears to reach the but not significantly compress the ventral surface of the cord. Central canal is minimally narrowed. The uncovertebral facets are prominent. Exit foramina appear adequate on the left and marginal to minimally narrowed on the right. At the C2-C3 level, there is relatively adequate disc height. Minimal broad- based bulge of the posterior annulus flattens the ventral surface of the thecal sac results some minimal of canal narrowing. No cord compression. Minimal degenerative squaring of the uncovertebral joints. Facets also mildly hypertrophic more so on the right side. Exit foramina appear adequate. PARASPINAL SOFT TISSUES: Unremarkable. OTHER FINDINGS: Incidental note made of asymmetry of the right lobe of the thyroid gland slightly larger than the left. There is also areas of low attenuation within the right lobe of the thyroid gland that could represent small colloid cysts or thyroid nodules. However of crossing streak and beam hardening artifact at diminishes fine soft tissue detail. Recommend followup thyroid ultrasound. Minimal biapical pleural thickening and parenchymal scarring. IMPRESSION: No acute compression fractures. Mild kyphotic angulation deformity centered at the C5-C6 level with straightening of the normal cervical lordosis above and below this level. Multilevel degenerative spondylosis most significantly affecting the C5-C6 and C6-C7 levels as detailed above. CT - Lumbar Spine Other Rad Studies (CT/US): Read By Radiologist, Radiology Report Reviewed CT/US Interpretation: PROCEDURE: CT scan lumbar spine dated 10/28/2017. HISTORY: Status post fall with back pain. COMPARISON: Correlation made with prior CT scan abdomen pelvis 12/14/2016 which image the lumbar spine in 3 planes. TECHNIQUE: Contiguous helical/transaxial computed tomography images were obtained of the lumbar spine without the use of intravenous contrast. Coronal and sagittal reformatted images were created and reviewed. Radiation dose: Total exam DLP = 108 4.62 mGy-cm. This CT exam was performed using one or more of the following dose reduction techniques: Automated exposure control, adjustment of the mA and/or kV according to patient size, and/or use of iterative reconstruction technique. . FINDINGS: VERTEBRAE: The current study reveals no acute compression fractures no retropulsed fragments. Vertebral bodies exhibit normal stature. Vertebral bodies and facets normally aligned. Mild diffuse demineralization. DISCS/SPINAL CANAL/NEURAL FORAMINA: Mild multilevel degenerative spondylosis. At the L4-L5 level, disc space narrowing, endplate eburnation with subchondral cystic changes again noted. There has been interval development of vacuum disc phenomena. Moderate-sized central and bilateral disc herniation extends into the proximal inferior margins of both exit foramina more so on the right side. There also appears to be some minimal inferior subligamentous extension of disc material over short distance. Changes result in bilateral lateral recess stenosis with compression of the ventral surface of the thecal sac. Central canal measured at midline appears marginal to adequate. The facets are hypertrophic with buckled ligamentum flavum that also result in mild compressive effects along the posterolateral border of the thecal sac. Exit foramina appear narrowed bilaterally more so on the right. At the L5-S1 level, there is adequate disc height. Small broad- based bulge of the posterior annulus also extends slightly into the proximal inferior margins of both exit foramina more so on the right. There is some flattening of the ventral surface of the thecal sac and possibly some minimal flattening of the ventral surfaces of the just exited descending S1 nerve roots. The overall central canal appears adequate. Facets are quite hypertrophic on the right and mild to moderately hypertrophic on the left. Exit foramina appear mildly narrowed. At the L3-L4 level, there is also relatively adequate disc height. Minimal broad-based bulge of the posterior annulus is present and results in some flattening of the ventral surface of the thecal sac. Disc extends into the proximal inferior margins of both exit foramina more so on the left where there may be a small proximal left foraminal protrusion component. Facets are hypertrophic and flavum somewhat buckled. Central canal appears adequate. Exit foramina are marginal on the right and mildly stenotic on the left. At the L2-L3 level there is disc space narrowing with mild endplate eburnation and small broad-based though somewhat irregular osteophytic ridge disc complex somewhat larger on the left than right with extension into the proximal inferior margins of both exit foramina again more so on the left side. There is irregular flattening of the ventral surface of the thecal sac more so on the left side. Central canal measured at midline appears adequate. Facets are mildly hypertrophic. Right exit foramen appears adequate. Left exit foramen is narrowed. PARASPINAL SOFT TISSUES: Paraspinal soft tissues grossly unremarkable. OTHER FINDINGS: Note made of some minor linear scarring in the both posterior sulci right more significant than the left. Apparent postoperative changes of the stomach. Urinary bladder is moderately distended. IMPRESSION: No acute fractures. Multilevel degenerative spondylosis most notably affecting the L4-L5 and to lesser degree L2-L3, L4-L5 and L5-S1 levels as detailed above. See above discussion for additional details and findings. Medical Decision Making Medical Decision Making: PLAN: * CT - Head, Cervical Spine, Lumbar Spine * Motrin PO * Tylenol PO On re-exam, the patient reports improvement of symptoms. Ambulatory in the ED with steady gait. A&O x3 and without focal deficits. Patient was instructed to take her medications only as indicated. Follow up with the medical doctor within 1-2 days. return if worsened Disposition - Disposition Referrals: Angel Orourke MD [Staff Provider] - Disposition: HOME/ ROUTINE Disposition Time: 15:46 Condition: GOOD Additional Instructions: ONLY TAKE 1 PILL PER DAY. Follow up with the medical doctor within 1-2 days. Return if worsened. 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 - Scribe Statement The provider has reviewed the documentation as recorded by the Scribe Celine Donnelly All medical record entries made by the Scribe were at my direction and personally dictated by me. I have reviewed the chart and agree that the record accurately reflects my personal performance of the history, physical exam, medical decision making, and the department course for this patient. I have also personally directed, reviewed, and agree with the discharge instructions and disposition.
--- NOTE | 2017-10-28 14:26 | CT ---
PROCEDURE: CT scan brain dated 10/28/2016. HISTORY: Head injury COMPARISON: Comparison made with CT scan brain dated 02/08/2017 TECHNIQUE: Axial computed tomography images were obtained through the head/brain without intravenous contrast. Radiation dose: Total exam DLP = 824.19 mGy-cm. This CT exam was performed using one or more of the following dose reduction techniques: Automated exposure control, adjustment of the mA and/or kV according to patient size, and/or use of iterative reconstruction technique. FINDINGS: HEMORRHAGE: No acute parenchymal, subarachnoid or extra-axial hemorrhage. BRAIN: Mild chronic periventricular white matter ischemic changes are felt to be present. There may also be a few scattered lacunar-type infarcts within both basal nuclei. Mild age-appropriate volume loss VENTRICLES: No evidence of obstructive hydrocephalus. CALVARIUM: Small elliptical shaped sclerotic focus within the right mid anterior parietal region likely representing a small bone island or osteoma. Calvarium otherwise appears unremarkable. PARANASAL SINUSES: Minimal mucosal thickening seen within a few ethmoid air cells not withstanding the aforementioned few collapsed ethmoid air cells subjacent to a lamina papyracea fracture MASTOID AIR CELLS: Unremarkable as visualized. No inflammatory changes. OTHER FINDINGS: Old short-segment fracture deformity right lamina papyracea with collapse of a few adjacent ethmoid air cells which are partially occupied by a herniated orbital fat. . There also appears to be borderline/mild exophthalmos. IMPRESSION: No acute intracranial hemorrhage. Suspect minimal chronic periventricular white matter ischemic changes and a few tiny bilateral basal nuclei lacunar type infarcts. Mild age-appropriate volume loss.
--- NOTE | 2017-10-28 14:37 | CT ---
PROCEDURE: CT scan lumbar spine dated 10/28/2017 HISTORY: Status post fall with back pain COMPARISON: Correlation made with prior CT scan abdomen pelvis 12/14/2016 which image the lumbar spine in 3 planes. TECHNIQUE: Contiguous helical/transaxial computed tomography images were obtained of the lumbar spine without the use of intravenous contrast. Coronal and sagittal reformatted images were created and reviewed. Radiation dose: Total exam DLP = 108 4.62 mGy-cm. This CT exam was performed using one or more of the following dose reduction techniques: Automated exposure control, adjustment of the mA and/or kV according to patient size, and/or use of iterative reconstruction technique. . FINDINGS: VERTEBRAE: The current study reveals no acute compression fractures no retropulsed fragments. Vertebral bodies exhibit normal stature. Vertebral bodies and facets normally aligned. Mild diffuse demineralization. DISCS/SPINAL CANAL/NEURAL FORAMINA: Mild multilevel degenerative spondylosis. At the L4-L5 level, disc space narrowing, endplate eburnation with subchondral cystic changes again noted. There has been interval development of vacuum disc phenomena. Moderate-sized central and bilateral disc herniation extends into the proximal inferior margins of both exit foramina more so on the right side. There also appears to be some minimal inferior subligamentous extension of disc material over short distance. Changes result in bilateral lateral recess stenosis with compression of the ventral surface of the thecal sac. Central canal measured at midline appears marginal to adequate. The facets are hypertrophic with buckled ligamentum flavum that also result in mild compressive effects along the posterolateral border of the thecal sac. Exit foramina appear narrowed bilaterally more so on the right. At the L5-S1 level, there is adequate disc height. Small broad-based bulge of the posterior annulus also extends slightly into the proximal inferior margins of both exit foramina more so on the right. There is some flattening of the ventral surface of the thecal sac and possibly some minimal flattening of the ventral surfaces of the just exited descending S1 nerve roots. The overall central canal appears adequate. Facets are quite hypertrophic on the right and mild to moderately hypertrophic on the left. Exit foramina appear mildly narrowed. At the L3-L4 level, there is also relatively adequate disc height. Minimal broad-based bulge of the posterior annulus is present and results in some flattening of the ventral surface of the thecal sac. Disc extends into the proximal inferior margins of both exit foramina more so on the left where there may be a small proximal left foraminal protrusion component. Facets are hypertrophic and flavum somewhat buckled. Central canal appears adequate. Exit foramina are marginal on the right and mildly stenotic on the left. At the L2-L3 level there is disc space narrowing with mild endplate eburnation and small broad-based though somewhat irregular osteophytic ridge disc complex somewhat larger on the left than right with extension into the proximal inferior margins of both exit foramina again more so on the left side. There is irregular flattening of the ventral surface of the thecal sac more so on the left side. Central canal measured at midline appears adequate. Facets are mildly hypertrophic. Right exit foramen appears adequate. Left exit foramen is narrowed. PARASPINAL SOFT TISSUES: Paraspinal soft tissues grossly unremarkable. OTHER FINDINGS: Note made of some minor linear scarring in the both posterior sulci right more significant than the left. Apparent postoperative changes of the stomach Urinary bladder is moderately distended. IMPRESSION: No acute fractures. Multilevel degenerative spondylosis most notably affecting the L4-L5 and to lesser degree L2-L3, L4-L5 and L5-S1 levels as detailed above. See above discussion for additional details and findings.
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
[2017-10-28 16:10] VITALS: BP 145/74; PULSE 74; RESP 18; TEMP 98.7
[2017-10-29 12:45] VITALS: O2SAT 96
== END 2017-10-28 16:10 | disposition home or self-care (01) ==
LOC: C.ER 11:44
DX: S09.90XA Unspecified injury of head, initial encounter (principal); S16.1XXA Strain of muscle, fascia and tendon at neck level, initial encounter; S30.0XXA Contusion of lower back and pelvis, initial encounter; W01.0XXA Fall on same level from slipping, tripping and stumbling without subsequent striking against object, initial encounter; Y92.89 Other specified places as the place of occurrence of the external cause

== ENCOUNTER 2017-12-16 13:10 | Emergency (ER) | payer OTHER ==
[2017-12-16 13:11] VITALS: BMI 27.4
[2017-12-16 13:37] VITALS: BP 137/78; PULSE 72; RESP 18; TEMP 97.6; O2SAT 98
[2017-12-16] MEDS ORDERED: Naproxen 550 mg Tab PO STA (13:53)
[2017-12-16] MEDS ORDERED: Naproxen 550 mg Tab PO ONE (14:09)
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
--- NOTE | 2017-12-16 16:48 | RAD ---
PROCEDURE: Cervical Spine Radiographs. HISTORY: Pain. COMPARISON: None. FINDINGS: BONES: The vertebral bodies are maintained in height. Normal alignment is maintained. The atlantoaxial articulation and odontoid process are intact. DISC SPACES: There is narrowing of the C5-6 and C6-7 disc spaces associated with anterior osteophyte formation, consistent with degenerative disc disease. The remaining intervertebral disc spaces are maintained in height. SOFT TISSUES: Normal. No prevertebral soft tissue swelling. OTHER FINDINGS: None. IMPRESSION: No evidence of fracture or dislocation. Degenerative disc disease at C5-6 and C6-7.
== END 2017-12-16 16:09 | disposition home or self-care (01) ==
LOC: C.ER 13:10
DX: S13.4XXA Sprain of ligaments of cervical spine, initial encounter (principal); S33.5XXA Sprain of ligaments of lumbar spine, initial encounter; V89.2XXA Person injured in unspecified motor-vehicle accident, traffic, initial encounter
CPT/HCPCS: 72040; 72100; 96372; 99283; J1885

== ENCOUNTER 2018-06-07 10:46 | Emergency (ER) | payer OTHER ==
[2018-06-07 10:46] VITALS: BMI 27.4
[2018-06-07] MEDS ORDERED: Dextrose 50% SYRINGE Inj (50 ml) ONE (11:11)
[2018-06-07] MEDS ORDERED: Dextrose 50% SYRINGE Inj (50 ml) IV STA (11:15)
[2018-06-07 11:21] VITALS: RESP 20
[2018-06-07] MEDS ORDERED: Sodium Chloride 0.9% 1,000 ML IV ONE (11:22)
--- NOTE | 2018-06-07 11:33 | C.PDOC ---
History Of Present Illness 58-year-old female, presents to the emergency department with complaints of Hypoglycemia, states she took her medication and went to PT, where she felt light headed and almost passed out. patient notes she did not eat anything today , Upon EMS arrival, patients blood sugar found to be 32. She was given an amp of D50 and brought to ER. Patient is currently complaining of exacerbation of chronic back pain. She denies numbness/weakness. No other complaints at this time. Time Seen by Provider: 06/07/18 11:19 Chief Complaint (Nursing): Dizziness/Lightheaded History Per: Patient, EMS History/Exam Limitations: no limitations Current Symptoms Are (Timing): Better Associated Symptoms Preceding Syncopal Episode: Lightheadedness Severity: Mild Past Medical History Reviewed: Historical Data, Nursing Documentation, Vital Signs Vital Signs: Last Vital Signs Temp 97.5 F L 06/07/18 12:25 Pulse 65 06/07/18 12:25 Resp 20 06/07/18 12:25 BP 151/81 H 06/07/18 12:25 Pulse Ox 100 06/07/18 12:25 - Medical History PMH: Anxiety, Arthritis, Back Problems (herniated discs), Bipolar Disorder, Colonic Polyps (2014), Depression, Diabetes (type 2), Hepatitis (C), HTN, Hypercholesterolemia, Migraine, Schizophrenia, Seizures Denies: Chronic Kidney Disease Surgical History: Cholecystectomy, Endoscopy (2014) - [facility] Procedures DETOXIFICATION SERVICES FOR SUBSTANCE ABUSE TREATMENT (02/03/17) GROUP PSYCHOTHERAPY (06/09/17) INDIV PSYCHOTHERAPY FOR SUBSTANCE ABUSE TREATMENT, SUPPORT (02/03/17) INDIVIDUAL PSYCHOTHERAPY, COGNITIVE-BEHAVIORAL (02/18/17) INDIVIDUAL PSYCHOTHERAPY, SUPPORTIVE (02/03/17) MEDICATION MANAGEMENT (02/03/17) Family History: States: No Known Family Hx - Social History Hx Tobacco Use: No Hx Alcohol Use: Yes Hx Substance Use: Yes - Immunization History Hx Tetanus Toxoid Vaccination: No Hx Influenza Vaccination: No Hx Pneumococcal Vaccination: No Review Of Systems Constitutional: Negative for: Fever, Chills Cardiovascular: Negative for: Chest Pain Respiratory: Negative for: Shortness of Breath Gastrointestinal: Negative for: Nausea, Vomiting Neurological: Positive for: Dizziness Physical Exam - Physical Exam Appears: Non-toxic, No Acute Distress Skin: Normal Color, Warm, Dry, No Rash Head: Atraumatic, Normacephalic Eye(s): bilateral: Normal Inspection, PERRL, EOMI Nose: Normal Oral Mucosa: Moist Tongue: Normal Appearing Neck: Normal ROM Cardiovascular: Rhythm Regular, No Murmur Respiratory: Normal Breath Sounds, No Accessory Muscle Use Gastrointestinal/Abdominal: Soft, No Tenderness Back: Normal Inspection Extremity: Normal ROM, No Deformity, No Swelling Neurological/Psych: Oriented x3, Normal Speech Gait: Steady ED Course And Treatment - Laboratory Results Result Diagrams: 06/07/18 11:31 06/07/18 11:31 Lab Interpretation: Abnormal O2 Sat by Pulse Oximetry: 97 Pulse Ox Interpretation: Normal (RA) Progress Note: Patient transferred from PT for lightheadness and BS 32. Patient took her SQ diabetic medication today but did not ear. Patient has history of chronic back pain. Patient treated with D50 IV. patient requesting pain medications. Treated with toradol 30 mg IV. Patienyt eating sandwich. Repeat blood sugar 150. Patient requesting discharge. Discharged in stable condition Reassessment Condition: Improved Disposition Counseled Patient/Family Regarding: Studies Performed, Diagnosis, Need For Followup - Disposition Disposition: HOME/ ROUTINE Disposition Time: 12:30 Condition: IMPROVED Additional Instructions: Follow up with clinic or PMD for further evaluation Eat 3 times daily Prescriptions: Naproxen [Naprosyn] 1 tab PO BID PRN #25 tab PRN Reason: Pain Instructions: Low Back Pain (DC), Low Blood Sugar, Adult (DC) Forms: [employer] (Georgian) - POA Present On Arrival: None - Clinical Impression Clinical Impression: Hypoglycemia - Scribe Statement The provider has reviewed the documentation as recorded by the Scribe (Harish Church) All medical record entries made by the Scribe were at my direction and personally dictated by me. I have reviewed the chart and agree that the record accurately reflects my personal performance of the history, physical exam, medical decision making, and the department course for this patient. I have also personally directed, reviewed, and agree with the discharge instructions and disposition.
[2018-06-07 11:37] LABS: BASO # 0.1 K/uL (0.0-0.2); BASO % 0.8 % (0.0-2.0); EOS # 0.3 K/uL (0.0-0.7); EOS % 3.1 % (0.0-4.0); HEMOGLOBIN 12.5 g/dL (11.0-16.0); LYMPH # 2.7 K/uL (1.0-4.3); LYMPH % 25.4 % (20.0-40.0); MEAN CELL VOLUME 98.3 fL (81.0-99.0); MEAN CORPUSCULAR HEMOGLOBIN 33.1 pg (27.0-31.0); MEAN CORPUSCULAR HGB CONC 33.7 g/dL (33.0-37.0); MEAN PLATELET VOLUME 9.4 fL (7.2-11.7); MONO # 0.9 K/uL (0.0-0.8); MONO % 8.6 % (0.0-10.0); NEUT # 6.7 K/uL (1.8-7.0); NEUT % 62.1 % (50.0-75.0); RBC 3.77 Mil/uL (3.80-5.20); RED CELL DISTRIBUTION WIDTH 13.6 % (11.5-14.5); WHITE BLOOD COUNT 10.8 K/uL (4.8-10.8)
[2018-06-07 12:07] LABS: ALB/GLOB RATIO 1.3 (1.0-2.1); ALBUMIN 4.5 g/dL (3.5-5.0); ALT/SGPT 50 U/L (9-52); AST/SGOT 29 U/L (14-36); BLOOD UREA NITROGEN 25 mg/dL (7-17); CALCIUM 9.6 mg/dl (8.6-10.4); GFR AFRICAN-AMERICAN > 60; GFR NON-AFRICAN AMERICAN > 60
[2018-06-07 12:26] VITALS: BP 151/81; PULSE 65; TEMP 97.5
[2018-06-07 17:01] VITALS: O2SAT 97
== END 2018-06-07 12:26 | disposition home or self-care (01) ==
LOC: C.ER 10:46
DX: E11.649 Type 2 diabetes mellitus with hypoglycemia without coma (principal); E78.00 Pure hypercholesterolemia, unspecified; F20.9 Schizophrenia, unspecified; I10 Essential (primary) hypertension
CPT/HCPCS: 36415; 80053; 82948; 85025; 96374; 99285; J1885

== ENCOUNTER 2018-07-23 10:21 | Emergency (ER) | payer OTHER ==
[2018-07-23 10:33] VITALS: BMI 29.8
[2018-07-23 10:40] VITALS: RESP 18; O2SAT 97
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
[2018-07-23 11:33] LABS: BARBITURATES, UR NEGATIVE (NEGATIVE); BENZODIAZEPINES, UR NEGATIVE (NEGATIVE); OPIATES, UR NEGATIVE (NEGATIVE); PHENCYCLIDINE, UR NEGATIVE (NEGATIVE)
[2018-07-23 11:37] LABS: BASO # 0.1 K/uL (0.0-0.2); BASO % 1.1 % (0.0-2.0); EOS # 0.2 K/uL (0.0-0.7); EOS % 4.1 % (0.0-4.0); HEMOGLOBIN 11.7 g/dL (11.0-16.0); LYMPH # 2.1 K/uL (1.0-4.3); LYMPH % 36.6 % (20.0-40.0); MEAN CELL VOLUME 98.6 fL (81.0-99.0); MEAN CORPUSCULAR HEMOGLOBIN 33.8 pg (27.0-31.0); MEAN CORPUSCULAR HGB CONC 34.3 g/dL (33.0-37.0); MEAN PLATELET VOLUME 8.3 fL (7.2-11.7); MONO # 0.4 K/uL (0.0-0.8); NEUT % 51.2 % (50.0-75.0); RBC 3.47 Mil/uL (3.80-5.20); RED CELL DISTRIBUTION WIDTH 12.8 % (11.5-14.5); WHITE BLOOD COUNT 5.8 K/uL (4.8-10.8)
[2018-07-23 11:48] LABS: SQUAMOUS EPITHIAL 5 /hpf (0-5); URINE BACTERIA MANY (<OCC); URINE BILIRUBIN NEGATIVE (NEGATIVE); URINE BLOOD 1+ (NEGATIVE); URINE CLARITY Clear (Clear); URINE COLOR Yellow (YELLOW); URINE GLUCOSE (UA) NORMAL (Normal); URINE LEUKOCYTE ESTERASE NEG Leu/uL (Negative); URINE PROTEIN 1+ mg/dL (NEGATIVE); URINE UROBILINOGEN NORMAL mg/dL (0.2-1.0)
[2018-07-23 11:48] LABS: ALB/GLOB RATIO 1.2 (1.0-2.1); ALBUMIN 4.1 g/dL (3.5-5.0); ALT/SGPT 72 U/L (9-52); AST/SGOT 45 U/L (14-36); BLOOD UREA NITROGEN 20 mg/dL (7-17); CALCIUM 9.3 mg/dl (8.6-10.4); GFR NON-AFRICAN AMERICAN > 60
[2018-07-23] MEDS ORDERED: Sodium Chloride 0.9% 1,000 ML IV ONE (12:02)
[2018-07-23] MEDS ORDERED: Fosphenytoin 1,000 MG in Sodium Chloride 0.9% 50 ML IV STA (12:02)
[2018-07-23] MEDS ORDERED: Oxycodone/Acetaminophen 5/325 mg Tab PO STA (12:09)
[2018-07-23] MEDS ORDERED: Oxycodone/Acetaminophen 5/325 mg Tab ONE (12:22)
[2018-07-23 13:57] VITALS: BP 170/70; PULSE 65; TEMP 97.3
== END 2018-07-23 14:05 | disposition home or self-care (01) ==
LOC: C.ER 10:21
DX: G40.909 Epilepsy, unspecified, not intractable, without status epilepticus (principal); E11.9 Type 2 diabetes mellitus without complications; E78.00 Pure hypercholesterolemia, unspecified; F20.9 Schizophrenia, unspecified; I10 Essential (primary) hypertension
CPT/HCPCS: 80053; 80185; 80324; 80345; 80346; 80349; 80353; 80358; 80361; 81001; 82948; 83992; 85025; 96372; 99285; J1885